=== PATIENT | female | born 1945 | race Caucasian/White ===

== ENCOUNTER 2018-05-08 14:00 | Outpatient (RCR) | payer MEDICARE, SELFPAY ==
--- NOTE | 2018-04-24 15:00 | PTTR_ITS ---
DATE: 04/24/18 SUBJECTIVE: Dot states that her met with her alkylation operator who modified her brace. She has only had it for 1 day, she isn't sure how she feels about it as of yet. Manual therapy: ([id number]). Today's session consisted of mobilization of cervical spine, began in supine position with gentle manual cervical traction, gentle PROM through all planes. She received mobilization with movement into L rotation with UPA's throughout the cervical segments. She also received bilateral PA mobilizations at grade 2 and 3 at C7-T1. Received suboccipital release and deep tissue mobilization throughout the cervical musculature as well as manual over pressure into cervical retraction. Direct treatment time: 30 mins Total treatment time: 30 mins after which the patient received an additional 15 mins of unattended moist heat to the cervical spine. SS/dl
--- NOTE | 2018-05-08 09:53 | PTTR_ITS ---
DATE: 04/07/18 SUBJECTIVE: Dot states that her neck is feeling incredibly stiff and try to use her brace here and there and she has difficulty getting this on. OBJECTIVE: Manual therapy: ([id number]). Pt received manual mobilization of the cervical spine. She received manual cervical traction and suboccipital release followed by passive range through all planes. She has significant restriction into (L) rotation at 40* today with firm end feel. She received mobilization with movement and grade 3UPAs to the (R) transverse processes. She also received deep tissue mobilization throughout the cervical paraspinals, upper traps and levator scap followed by further sustained stretching into rotation. She eventually tolerates 50* of (L) rotation. She ended with moist heat to the cervical spine for 15 minutes. Direct treatment time: 30 minutes Total treatment time: 45 minutes
== END 2018-05-09 23:59 | disposition home or self-care (01) ==
LOC: PT 14:00
PROVIDERS: PCP Family Medicine; Referring Provider Orthopaedic Surgery; Visit Provider Orthopaedic Surgery
DX: M54.2 Cervicalgia (principal); R51 Headache
CPT/HCPCS: 97140

== ENCOUNTER 2018-05-21 11:32 | Outpatient (CLI) | payer MEDICARE, SELFPAY | END 2018-05-21 11:52 | PROVIDERS: PCP Family Medicine; Visit Provider Surgery | DX: K58.0 Irritable bowel syndrome with diarrhea (principal) | CPT/HCPCS: 99213 ==

== ENCOUNTER 2018-09-03 10:38 | Emergency (ER) | payer MEDICARE, SELFPAY ==
[2018-09-03 11:00] VITALS: BP 160/89; PULSE 71; RESP 16; TEMP 37; O2SAT 99
--- NOTE | 2018-09-03 11:14 | W.ED.GENAD ---
Discharge Plan Disposition Patient Disposition: HOME Condition: Improving Discharge Details Chief Complaint: GenMedical Clinical Impression: Encounter for Daniels catheter removal Primary Care Provider: Lucas Chamorro ED Provider: Usman Melo Home Meds and New Rx's Prescriptions: Continued cyanocobalamin (vitamin B-12) [Vitamin B-12] 500 MCG tablet 500 mcg PO DAILY RF: 0 rhqythhxzgg-gxuljwpro-vgj C-Mn 1 EACH tablet 1,000 mg PO DAILY RF: 0 CENTRUM SILVER TABLET 1 EACH tablet 1 ea PO DAILY RF: 0 latanoprost 2.5 ML drops 1 drp OD HS RF: 0 diphenoxylate-atropine 1 EACH tablet 1 - 2 tab PO TID PRNQty: 30 RF: 4 benzonatate 200 MG capsule 200 mg PO TID PRNQty: 20 RF: 0 bismuth subsalicylate [Pepto-Bismol] 262 MG/15 ML suspension 1 tsp PO PRN PRNRF: 0 ranitidine HCl 300 MG tablet 300 mg PO HS Qty: 30 RF: 0 Discharge Instructions Additional Instructions: Continue all of your regular medications as well as her daily routine. Return if you are unable to urinate. Return if you develop a fever or back pain. Follow-up with surgery as planned with them at [facility]. Medical Decision Making 72-year-old female who was discharged from [facility] after complicated abdominal surgeries including incisional hernia. She was discharged on Saturday and states that she is here today for Daniels catheter removal after talking to [facility] and stated to them that she did not want to travel to [place] to have her catheter removed. She had no back pain or fever. She is been tolerating liquids and solids by mouth. Moving her bowels. Has decreased the use of ibuprofen for incisional and abdominal pain. Daniels catheter removed and patient observed for voiding trial with production of clear urine and no dysuria. Discussed with patient return precautions with patient and her including signs of urinary retention. Stable for discharge at this time. HPI General Mode of arrival: ambulatory. Date/Time Provider Initiated Documentation: 09/03/18 10:49. Limitations to Documentation: no limitations. Information obtained by: patient. History of Present Illness 72 year old F presents to the emergency department with the chief complaint of I do not want to drive to [facility] I have my catheter taken out. No pain, No relieving factors improve symptom(s), No exacerbating factors reported . Patient notes no other symptoms.. Patient did receive the following treatments prior to arrival, none Related Data Home Medications Medication Instructions Recorded Confirmed cyanocobalamin (vitamin B-12) 500 mcg PO DAILY 05/09/13 07/22/18 [Vitamin B-12] Centrum Silver Tablet 1 ea PO DAILY 01/08/14 07/22/18 otmhatmvkaq-zwxmjjzfn-pcu C-Mn 1,000 mg PO DAILY 01/08/14 07/22/18 latanoprost 1 drp OD HS drp 10/21/17 07/22/18 diphenoxylate-atropine 1 - 2 tab PO TID PRN #30 tab-cap 12/31/17 07/22/18 benzonatate 200 mg PO TID PRN #20 tab-cap 03/20/18 07/22/18 bismuth subsalicylate 1 tsp PO PRN PRN 05/01/18 07/22/18 [Pepto-Bismol] ranitidine HCl 300 mg PO HS #30 tab 05/01/18 07/22/18 Previous Rx's Medication Instructions Recorded ranitidine HCl 300 mg PO HS #30 tab 05/01/18 Allergies Allergy/AdvReac Type Severity Reaction Status Date / Time codeine AdvReac Severe GI UPSET Unverified 07/22/18 10:28 metoclopramide HCl AdvReac Severe GI UPSET Unverified 07/22/18 10:28 [From Reglan] tramadol AdvReac Severe GI UPSET Unverified 07/22/18 10:28 General Stated Complaint: GenMedical KOKO: 4 Review of Systems Review of Systems No fever, chills, nausea, vomiting. She has had normal bowel movements. 6 systems reviewed and otherwise negative [facility] Medical History Hx of Clostridium difficile infection (Resolved) Diarrhea Essential hypertension GERD (gastroesophageal reflux disease) Surgical History Abdominal hysterectomy (~1977) Appendectomy (~1957) Bladder Surgery (~1998) Breast tumor removal Colonoscopy - MAC (01/13/18) EGD - MAC (05/01/18) EYE SURGERY HERNIA REPAIR (~1973) Ligation of fallopian tube Open Carpal Tunnel release Pre cancer spots removed from face Reduction mammoplasty (~1995) Replacement of total knee joint Thymomma Tumor removal Tonsillectomy and adenoidectomy (~1948) Total replacement of hip Family History Mother RA (rheumatoid arthritis) Diabetes Heart disease Father Heart disease Neoplasm Sister Hyperlipidemia Neoplasm Daughter No problems noted. Daughter Essential hypertension Asthma Social History Smoking/Tobacco Use Status: Former Tobacco Use Exam Narrative Exam Narrative: GEN: awake, alert, oriented 3. Pleasant, well groomed, interactive. HEAD: Normocephalic, atraumatic ENT: Mucous membranes moist, oropharynx unremarkable, External ear exam unremarkable EYES: PERRL, EOMI NECK: Full ROM, no STARLA, no menigismus CHEST/RESP: Nontender, clear to auscultation bilateral, no wheeze/rhonchi/rales CARDIOVASCULAR: RRR, subtle 2 out of 6 systolic murmur, rub marla. 2+ Rad pulse bilateral ABDOMEN: Soft, nontender, no mass. Bilateral lower quadrant ecchymosis and healing surgical incisions. No rebound or guarding. +Bowel sounds. Daniels catheter with leg bag in place EXT: Full ROM, no edema, no rash Neuro: Grossly normal neurologic exam, conversant, interactive. Psych: Speech fluent, thoughts congruent, affect normal Course Vital Signs Temperature 37.0 C 09/03/18 11:00 Pulse 71 09/03/18 11:00 Respiratory Rate 16 09/03/18 11:00 Blood Pressure 160/89 H 09/03/18 11:00 Pulse Oximetry 99 09/03/18 11:00 Temperature 37.0 C 09/03/18 11:00 Temperature Source Temporal Artery Scan 09/03/18 11:00 Pulse 71 09/03/18 11:00 Respiratory Rate 16 09/03/18 11:00 Blood Pressure 160/89 H 09/03/18 11:00 Blood Pressure Position Sitting 09/03/18 11:00 Pulse Oximetry 99 09/03/18 11:00 Oxygen Delivery Method Room Air 09/03/18 11:00 Oxygen Flow Rate 0 09/03/18 11:00
--- NOTE | 2018-09-03 11:22 | NUR.NOTE ---
sigifredo church/cayla as ordered, pt. drinking water.
--- NOTE | 2018-09-03 12:46 | NUR.NOTE ---
Pt. voided about 80ccs, bladder scanned for 345ccs. MD Melo is at the bedside currently, discussing discharge plan. Pt. states she normally pees frequent small amounts. She denies any pain or discomfort.
== END 2018-09-03 13:28 | disposition home or self-care (01) ==
PROVIDERS: Emergency Provider Emergency Medicine; PCP Family Medicine
DX: Z46.6 Encounter for fitting and adjustment of urinary device (principal); Z98.890 Other specified postprocedural states
CPT/HCPCS: 99281

== ENCOUNTER 2018-10-14 16:25 | Outpatient (CLI) | payer MEDICARE, SELFPAY ==
--- NOTE | 2018-10-14 15:00 | DI.RAD_ITS ---
SYMPTOMS/DIAGNOSIS: PERSISTENT PAIN LT SHOULDER NOT HELPED WITH INJ, BURSITIS OF LT SHOULDER, M75.52 LEFT SHOULDER: There is mild spurring at the AC joint and undersurface of the acromion. There is mild spurring at the rim of the glenoid. The humeral head appears normally positioned. No tendon or joint space calcifications are seen. No lytic or blastic bony lesions are identified. There is mild spurring and small subchondral cysts in the greater tuberosity. Sternal wires are noted. IMPRESSION: Mild degenerative changes.
[2018-10-15 11:52] LABS: IgA 162 mg/dL (85-499); Interpretation SEE COMMENTS; Tissue Transglutaminase IgA <1.2 U/mL (<4.0)
== END 2018-10-14 16:45 ==
PROVIDERS: PCP Family Medicine; Visit Provider Family Medicine
DX: M25.512 Pain in left shoulder (principal); M19.012 Primary osteoarthritis, left shoulder; M75.52 Bursitis of left shoulder; R19.7 Diarrhea, unspecified
CPT/HCPCS: 36415; 82784; 83516; 73030

== ENCOUNTER 2019-03-02 02:27 | Outpatient (CLI) | payer MEDICARE, SELFPAY ==
[2019-03-02 16:13] LABS: HCT 36.6 % (36.0-46.0); HGB 12.3 g/dL (12.0-15.5); Mean Corp. HGB Concentration 33.6 g/dL (32.0-36.0); Mean Corpuscular Hemoglobin 30.3 pg (27.0-33.0); Mean Corpuscular Volume 90.1 fL (80-95); Mean Platelet Volume 9.3 fL (8.0-11.0); Platelet Count 189 x1000/uL (130-400); RBC 4.06 m/cumm (4.00-5.20); RBC Distribution Width 13.3 % (11.7-14.6); White Blood Cell Count 5.84 k/cumm (4.4-10.8)
[2019-03-02 16:48] LABS: Anion Gap 6.3 mmol/L (3-11); BUN 13 mg/dL (7-18); CO2 29.7 mmol/L (21.0-32.0); CREATININE 0.56 mg/dL (0.55-1.02); Chloride 105 mmol/L (98-107); Glucose 129 mg/dL (70-100); Potassium 4.3 mmol/L (3.5-5.1); Sodium 141 mmol/L (136-145)
== END 2019-03-02 02:47 ==
PROVIDERS: PCP Family Medicine; Visit Provider Family Medicine
DX: D64.9 Anemia, unspecified (principal); I10 Essential (primary) hypertension
CPT/HCPCS: 36415; 80048; 85027

== ENCOUNTER 2019-03-09 07:12 | Outpatient (CLI) | payer MEDICARE, SELFPAY ==
--- NOTE | 2019-03-09 17:30 | DI.MAMMO_ITS ---
SYMPTOM/DIAGNOSIS: SCREENING Z12.31 BILATERAL SCREENING MAMMOGRAM: Mammograms were interpreted according to the usual protocol including computer analysis with CAD system, tomosynthesis and C view imaging. Comparison is made with exams from 2011 through 2016. The breasts are composed of heterogeneously dense fibroglandular tissue, breast density Category C. There has been apparent interval weight loss since the previous exams. No suspicious masses or suspicious microcalcifications are seen. There has been no significant change. IMPRESSION: Category 1, negative mammogram. Yearly screening mammography is recommended. Breast density category C. MQSA ASSESSMENT OF FINDINGS: Negative. Category 1. Patient will receive a letter notifying them of these results. Bi-RADS category C. The breasts are heterogeneously dense, which may obscure small masses.
== END 2019-03-09 07:32 ==
PROVIDERS: PCP Family Medicine; Visit Provider Family Medicine
DX: Z12.31 Encounter for screening mammogram for malignant neoplasm of breast (principal)
CPT/HCPCS: 77063; 77067

== ENCOUNTER 2019-10-12 09:40 | Outpatient (CLI) | payer MEDICARE, SELFPAY ==
[2019-10-12 11:40] LABS: HCT 38.3 % (36.0-46.0); HGB 12.5 g/dL (12.0-15.5); Mean Corp. HGB Concentration 32.6 g/dL (32.0-36.0); Mean Corpuscular Hemoglobin 29.9 pg (27.0-33.0); Mean Corpuscular Volume 91.6 fL (80-95); Mean Platelet Volume 8.9 fL (8.0-11.0); Platelet Count 246 x1000/uL (130-400); RBC 4.18 m/cumm (4.00-5.20); RBC Distribution Width 13.8 % (11.7-14.6); White Blood Cell Count 6.33 k/cumm (4.4-10.8)
[2019-10-12 12:45] LABS: ALT 26 U/L (14-59); AST 18 U/L (15-37); Albumin 3.6 g/dL (3.4-5.0); Alkaline Phosphatase 78 U/L (46-116); BUN 14 mg/dL (7-18); Bilirubin, Total 0.4 mg/dL (0.2-1.0); CREATININE 0.66 mg/dL (0.55-1.02); Calcium 10.6 mg/dL (8.5-10.1); Chloride 105 mmol/L (98-107); Glucose 95 mg/dL (74-106); Potassium 4.5 mmol/L (3.5-5.1); Sodium 142 mmol/L (136-145); Total Protein 6.1 g/dL (6.4-8.2)
== END 2019-10-12 10:00 ==
PROVIDERS: PCP Family Medicine; Visit Provider Family Medicine
DX: I10 Essential (primary) hypertension (principal); R53.83 Other fatigue
CPT/HCPCS: 36415; 80053; 85027

== ENCOUNTER 2020-03-28 02:29 | Outpatient (CLI) | payer MEDICARE, SELFPAY ==
[2020-03-28 13:37] LABS: ESR 11 mm/hr (0-30)
[2020-03-28 13:54] LABS: C-Reactive Protein 0.11 mg/dL (0.0-0.3); Creatine Kinase 57 U/L (26-192)
== END 2020-03-28 02:49 ==
PROVIDERS: PCP Family Medicine; Visit Provider Family Medicine
DX: G71.00 Muscular dystrophy, unspecified (principal); M25.50 Pain in unspecified joint
CPT/HCPCS: 36415; 82550; 85652; 86140

== ENCOUNTER 2020-04-20 09:34 | Outpatient (CLI) | payer MEDICARE, SELFPAY ==
--- NOTE | 2020-04-20 09:15 | DI.RAD_ITS ---
EXAM: XR SHOULDER RT COMPLETE 2+V CLINICAL HISTORY: right shoulder pain TECHNIQUE: COMPARISON: CR XR SHOULDER LT COMPLETE 2+V from 04/20/2020 FINDINGS: Two views were obtained. There may be slight narrowing of cartilaginous joint space of the glenohume ral joint. Moderate marginal osteophytes noted involving the humeral head and glenoid and moderate h ypertrophic changes of the AC joint are noted. No other significant bony or soft tissue abnormality seen. IMPRESSION: Moderate degenerative changes of glenohumeral and AC joints as described above.
--- NOTE | 2020-04-20 09:15 | DI.RAD_ITS ---
EXAM: XR SHOULDER LT COMPLETE 2+V CLINICAL HISTORY: left shoulder pain TECHNIQUE: COMPARISON: No exams were available for comparison FINDINGS: Views were obtained. Note is made of sternal sutures. There may be slight narrowing of the cartilag inous joint space of the glenohumeral joint. Moderate marginal osteophytes noted at the glenohumeral joint and AC joint. No other significant bony or soft tissue abnormality seen. IMPRESSION: Moderate degenerative changes as described above.
== END 2020-04-20 09:54 ==
PROVIDERS: PCP Family Medicine; Referring Provider Family Medicine; Visit Provider Student in an Organized Health Care Education/Training Program
DX: M19.012 Primary osteoarthritis, left shoulder (principal); M19.011 Primary osteoarthritis, right shoulder; M75.21 Bicipital tendinitis, right shoulder; M75.22 Bicipital tendinitis, left shoulder; M75.102 Unspecified rotator cuff tear or rupture of left shoulder, not specified as traumatic; M75.51 Bursitis of right shoulder; M75.52 Bursitis of left shoulder; M75.41 Impingement syndrome of right shoulder; M75.42 Impingement syndrome of left shoulder
CPT/HCPCS: 99204; 99215; 73030

== ENCOUNTER → 2020-06-15 11:05 | Outpatient (BNVA) | payer MEDICARE, SELFPAY | PROVIDERS: PCP Family Medicine; Referring Provider Family Medicine; Visit Provider Student in an Organized Health Care Education/Training Program | DX: M25.512 Pain in left shoulder (principal); M25.511 Pain in right shoulder; M75.41 Impingement syndrome of right shoulder; M75.42 Impingement syndrome of left shoulder; M75.51 Bursitis of right shoulder; M75.52 Bursitis of left shoulder; M75.21 Bicipital tendinitis, right shoulder; M75.22 Bicipital tendinitis, left shoulder; M75.122 Complete rotator cuff tear or rupture of left shoulder, not specified as traumatic | CPT/HCPCS: 99214 ==

== ENCOUNTER → 2020-10-11 09:01 | Outpatient (BNVA) | payer MEDICARE, SELFPAY | PROVIDERS: PCP Family Medicine; Referring Provider Family Medicine; Visit Provider Student in an Organized Health Care Education/Training Program | DX: M75.122 Complete rotator cuff tear or rupture of left shoulder, not specified as traumatic (principal); M75.41 Impingement syndrome of right shoulder; M75.42 Impingement syndrome of left shoulder; M75.51 Bursitis of right shoulder; M75.52 Bursitis of left shoulder | CPT/HCPCS: 99213 ==

== ENCOUNTER 2020-10-26 01:08 | Outpatient (CLI) | payer MEDICARE, SELFPAY ==
--- NOTE | 2020-10-26 06:45 | DI.MRI_ITS ---
EXAM: MR UPPER JOINT LT WO CLINICAL HISTORY: LT ROTATOR CUFF TEAR, LT SHOULDER PAIN, M75.122 TECHNIQUE: Multiplanar multisequence MRI of the shoulder was performed. COMPARISON: CR XR SHOULDER LT COMPLETE 2+V from 04/20/2020 CR XR SHOULDER RT COMPLETE 2+V from 04/20/2020 FINDINGS: MARROW:There is bone contusion signal in the greater tuberosity. Also degenerative subarticular cyst at this level noted ROTATOR CUFF MECHANISM: AC JOINT/ACROMIUM: Degenerative changes in the AC joint. Prominent downgoing osteophyte on the clavi cular side of this joint is causing impingement upon the rotator cuff mechanism.. There is no evidence of os acromiale. Supraspinatus: Tendinitis signal. No full-thickness tear. Mild atrophy. There is no fluid in the subacromial bursa Infraspinatus: Intact. No evidence of tear nor muscle atrophy. Teres Minor: Intact. No evidence of tear nor muscle atrophy. Subscapularis/anterior cuff: Mild tendinitis. No full-thickness tear. No atrophy. BICEPS TENDON: The intra-articular aspect of the biceps tendon is not evident, unusual location consi stent with tear of this structure. It does not appear to attach to the anterosuperior labrum. LABRUM: There is no abnormal signal in the superior labrum. Posterior labrum appears intact. Inferi or labrum appears intact. GLENOHUMERAL JOINT: No joint effusion nor obvious loose intra-articular bodies. No chondral defects. No prominent osteophytes. No evidence of capsular tear. The inferior glenohumeral ligament is int act. QUADRILATERAL SPACE: No evidence of mass in the region of the axillary nerve and dorsal circumflex hu meral vessels. Visualized triceps muscle at this level appears unremarkable. IMPRESSION: 1. The biceps tendon is thin within the intertubercular groove and the intra-articular portion of the structure does not appear to attached to the anterior superior labrum, consistent with tear of this structure. This does not have acute appearance. There is no obvious tear of the superior labrum. 2. Rotator cuff status supraspinatus tendonitis, this related to impingement at the AC joint level wh ere there is downgoing osteophyte on the clavicular side of the joint. There also degenerative subar ticular cysts and bone edema in the greater tuberosity region. There does not appear to be a full-th ickness rotator cuff tear. There is no fluid in the subacromial bursa. 3. Mild degenerative changes in the glenohumeral joint. No large osteophytes. No prominent glenohum eral joint effusion or loose intra-articular bodies evident. DATA REPOSITORY:
== END 2020-10-26 01:09 ==
LOC: DI 01:09
PROVIDERS: PCP Family Medicine; Visit Provider Student in an Organized Health Care Education/Training Program
DX: M75.122 Complete rotator cuff tear or rupture of left shoulder, not specified as traumatic (principal); M25.512 Pain in left shoulder; M19.012 Primary osteoarthritis, left shoulder; M75.82 Other shoulder lesions, left shoulder
CPT/HCPCS: 73221

== ENCOUNTER → 2020-11-09 15:03 | Outpatient (BNVA) | payer MEDICARE, SELFPAY | PROVIDERS: PCP Family Medicine; Referring Provider Family Medicine; Visit Provider Student in an Organized Health Care Education/Training Program | DX: M19.012 Primary osteoarthritis, left shoulder (principal); M75.51 Bursitis of right shoulder; M75.52 Bursitis of left shoulder; M75.41 Impingement syndrome of right shoulder; M75.42 Impingement syndrome of left shoulder | CPT/HCPCS: 99214 ==

== ENCOUNTER 2020-11-29 03:09 | Outpatient (CLI) | payer MEDICARE, SELFPAY ==
[2020-11-29 11:34] LABS: Source Nasal/Nares
[2020-11-29 16:59] LABS: COVID-19 PCR Negative (Negative)
== END 2020-11-29 03:10 | disposition home or self-care (01) ==
LOC: LBO 03:09
PROVIDERS: PCP Family Medicine; Visit Provider Student in an Organized Health Care Education/Training Program
DX: Z20.822 Contact with and (suspected) exposure to COVID-19 (principal); Z01.818 Encounter for other preprocedural examination
CPT/HCPCS: 87635

== ENCOUNTER 2020-12-01 06:11 | Day surgery (SDC) | payer MEDICARE, SELFPAY ==
--- NOTE | 2020-11-10 14:52 | ANES_ITS ---
Date of service: 11/10/20 Time of Service: 14:53 Anesthesia Note Report Anesthesia Note: Anesthesia consult for chart review requested by Dr. Natalia Harris due to upcoming shoulder arthroscopy and debridement of left shoulder and the patient's history significant to kyphosis and unspecified muscular dystrophy. The patient has a very significant anesthetic history at [facility] with both emergent and planned anesthetics. We have taken care of her before though for less invasive procedures. Due to her history of muscular dystrophy recommendations to incorporate regional anesthetics, incorporate TIVA, and avoid depolarizing neuromuscular agents. High risk of pulmonary complications postoperatively, especially with her kyphosis. We can proceed cautiously with her planned surgery.
[2020-12-01] VITALS (17 sets, daily range): BP systolic 144–222; BP diastolic 69–104; PULSE 66–90; RESP 12–20; TEMP 36–36.8; O2SAT 95–100
[2020-12-01] MEDS: Lactated Ringers 1,000 ML 100 ML IV (06:47)
--- NOTE | 2020-12-01 08:22 | W.PM.OP ---
Date of service: 12/01/20 Time of Service: 08:00 Operative Note Operative Note DATE OF PROCEDURE: 12/01/20 PRE-OP DIAGNOSIS: Left shoulder: 1. Rotator cuff tear 2. LHB tendinopathy 3. Bursitis 4. Impingement PROCEDURE: None SURGEON: Blade Harris APPOINTMENT SCHEDULER: Mike Pérez ANESTHESIA TYPE: General LMA/ETT and Primary Nerve Block Refer to Anesthesia Record ESTIMATED BLOOD LOSS: 0 PATHOLOGY: none sent COMPLICATIONS: Other (Case aborted after induction of anesthesia due to labile blood pressure) Patient was transported to: PACU Patient's condition: stable Indications: The patient was diagnosed with the above conditions and appropriately indicated for surgical intervention. Please see complete medical record for details. Findings: Exam under anesthesia: Moderately restricted range of motion, after gentle pressure external rotation forward elevation relative symmetric bilaterally with forward elevation about 135 to 145 degrees with modest pressure, external rotation past 55 degrees, and internal rotation past her hips Procedure Description: In the operating room, general anesthesia was induced. Bilateral shoulders were examined. The patient blood pressures were labile and her heart rate was bradycardic. On attempts to sit the patient up into the beachchair position, which was done slowly, the blood pressures especially systolic was elevated over 200. The patient was laid flat and reevaluated for period of time. Blood pressures remained labile alternating between normotensive and significantly hypertensive while the patient appeared comfortably under general anesthesia with a bradycardic heart rate. Recommendation from both nurse warehouse distribution manager in the room was to abort elective shoulder surgery today and the patient to follow-up with her primary care physician for evaluation/optimization of blood pressure control. I discussed our inability to safely perform the patient's shoulder surgery today with her who voices understanding and is in agreement with the plan. I will follow up with both him in my office discuss the options including nonoperative treatment with additional corticosteroid injection versus referral to [facility] for higher level of anesthesia care. Patient will be monitored for any adverse event, and anesthesia and in the PACU in day surgery units prior to discharge.
[2020-12-01] MEDS: ceFAZolin 2 GM/50 ML BAG IVPB (08:31)
--- NOTE | 2020-12-01 10:02 | MCONE_ITS ---
Date of service: 12/01/20 Time of Service: 09:40 Assessment and Plan Assessment and plan (1) Hypertensive urgency: Status: Acute Assessment and plan: The patient likely in fact has a higher degree of hy pertension than she thinks because her BP measurements at home have been inaccurate due to technique/arm position/inherently inaccurate home BP cuffs. At the same time, she admits to a high salt intake. We will start the patient on norvasc 2.5 mg PO daily and have a home health nurse assess her BP at home - this way, white coat hypertension, stress of pushing a wheelchair, and poor technique will be taken out of equation. We will also catch if her BP is being over or undertreated. I anticipate she has a component of autonomic dysfunction likely associated with her spending much of her time seated/requiring a wheel chair, though I recognize she is also ambulatory. I think a cardiac myopathy is much less likely given the fact that her spinal myopathy is isolated, per neuro, but I think it is worth it to obtain an outpatient echocardiogram to make sure. I will order this. Orthostatic BPs should be checked at the time of the patient's home health visit as well. I suspect the patient can be discharged home from PACU. Discuss with Malu Kaufman as well as with Dr Harris. (2) Urinary retention: Status: Acute Assessment and plan: I have ordered bladder scans with straight cath for bladder volume >250 cc. 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 The patient had blood pressures in 160s systolic in preop area. It was noted that she was anxious. Her blood pressures did go up to >200 systolic when she was about to get scalene block. With precedex and induction of anesthesia, as well as intubation, the SBPs came down to 115-120. The patient was then sat up as would be expected for procedure with SBPs dropping to 90s and HR down to 20-30s (sinus bradycardia). BP and HR changes are expected with position change under anesthesia. Phenylephrine and ephedrine boluses were administered with SBPs going up to 120, HR up to 50s. However, then the patient's BPs went up to >200 supine. At that point, decision was made to abort surgery. The patient ended up receiving a total of 10 mg of hydralazine. She was successfully extubated and is able to tell me her history. She states that for years she has had a diagnosis of hypertension. She states the BPs got better when she lost weight (she used to weigh 180 lbs, per patient). She states that still, when she goes to see her PCP in the office, her SBPs are frequently in 160s but when she checks them at home with a digital cuff, they are in 130s. She states she has never been medicated for her BP. When asked if she makes sure that the arm position is at the heart level when she checks her BP, she states she usually does not do that. She also endorses significant salt intake at home (Divehi fries, potato chips, etc). The patient states she feels a little dizzy now (just coming out of anesthesia). She denies having chest pain or shortness of breath. The patient is also endorsing having difficulty emptying her bladder post anesthesia and was about to have a bladder scan. 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 Diarrhea negative colonosocpy for microscopic colitis Diarrhea Essential hypertension GERD (gastroesophageal reflux disease) Sebastian's disease Hx of Clostridium difficile infection Kyphosis Muscular dystrophy Neck pain large breasts; S/P reduction x 2 Peripheral neuropathy RLS (restless legs syndrome) Sinus arrhythmia (11/24/13) noted on EKG at [facility] [place] 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 Marinelli Reduction mammoplasty (~1995) Replacement of total knee joint [facility] [place] [facility] (right) Thymomma Tumor removal 1996 Tonsillectomy and adenoidectomy (~1949) Total replacement of hip [facility] [place] [facility] 11/01/17 Family History Mother , 63 RA (rheumatoid arthritis) Diabetes Heart disease ENLARGED HEART Father , 91 Heart disease PACEMAKER Skin cancer of nose Sister Hyperlipidemia Cancer of skin of leg Daughter No problems noted. Daughter Essential hypertension Asthma Maternal Grandfather No problems noted. Paternal Grandfather No problems noted. Maternal Grandmother No problems noted. Paternal Grandmother No problems noted. Social History Smoking/Tobacco Use Status: Former Tobacco Use Quit Date: 09/09/1968 Tobacco: How many years used: 3 Second Hand Exposure: Yes Smoking risk assessment performed?: Yes Alcohol Intake: former Drug use: Never Substance use type: does not use Caregiver/Support person: Yes ( when needed) Household members: spouse Housing: house Communication Needs: Hard of Hearing Do you need help understanding health information?: Never Pets and animals: No Sexually active: Yes Do you think of yourself as: straight/heterosexual Current gender identity: female What is your relationship status?: How often do you talk on the phone with friends or family?: three or more times per week How often do you get together with friends or relatives?: once per week How often do you attend uatsdin or buddhist services?: 4 or more times per year Do you belong to any clubs or organized social groups?: no Panel score (0-1 are the most socially isolated patients): 3 What type of physical activity do you participate in: other Details: balance exercises, stretching, weights 3 x/week Duration: < 15 minutes/day Frequency: decline to answer Cindy/Restoration: [facility] Special cindy needs: No Seatbelt use: always Helmet use: Yes Helmet use: sometimes Drive intox or ride w/intox four horse hitch driver: No Do you feel safe at home: Yes Do you feel safe in your relationship?: Yes Exam Narrative Exam Narrative: General: Very pleasant elderly female, A&Ox3, awake enough to provide a coherent history Neurological: A&Ox3, no focal deficits that I am able to appreciate Psychiatric: Appropriate speech content/pattern Skin: Visible skin intact HEENT: Atraumatic, normocephalic, EOMI, dry MM, no JVD Cardiovascular: RRR, no m/r/g Lungs: CTAB Gastrointestinal: soft, nontender, nondistended Extremities: no edema BLEs Results Last Vital Signs Temp 36.0 C L 12/01/20 09:31 Pulse 85 12/01/20 09:31 Resp 16 12/01/20 09:31 BP 172/74 H 12/01/20 09:31 Pulse Ox 100 12/01/20 09:01
[2020-12-01] MEDS: amLODIPine 2.5 MG TAB PO (10:15)
--- NOTE | 2020-12-01 10:52 | PDOC.HHF2F_ITS ---
Home Health Certification Home Health Certification: 1. Encounter Date and Reason I certify that CLEOPATRA ANDRADE was seen by Raine Scott on 12/01/20 and that I had a [id number] encounter with this patient that meets the physician face to face encounter requirements. 2. Clinical Findings Supporting Skilled Need and Homebound Status I certify that home health services are medically necessary, include either intermittent correction and/or physical/speech therapy, and that this patie nt is homebound in that absences from the home require considerable and taxing effort and are infrequent or of short duration, or are attributable to the need to receive medical care. [X] (a) Attached documentation from encounter provides clinical findings supporting skilled need and homebound status (including what assistance patient requires to leave the home). The encounter with the patient was in whole, or in part, for the following medical condition, which is the primary reason for home health care: Left shoulder surgery Fci: Hypertension, being initiated on new BP med (amlodipine 2.5 mg daily), question of autonomic dysfunction. Please, evaluate BP (regular and orthostatic). Homebound: unable to leave home without assistance. 3. Certification and Authentication I certify that I composed the above information based on my clinical judgement relating to this patient's medical condition and, if applicable, clinical findings communicated to me by the NPP or inpatient physician who performed the Home Health Referral. All further orders will be obtained through ___Dr Jerry (Community Based Physician - PCP)
[2020-12-01] MEDS: Metoprolol 12.5 MG TAB PO (11:52)
--- NOTE | 2020-12-01 13:34 | PDOC.DSDIS_ITS ---
Discharge Plan Disposition Patient Disposition: HOME Condition: Stable Discharge Details Reason For Visit: Left shoulder surgery Attending Provider: Blade Harris Primary Care Provider: Blane Jerry Home Meds and New Rx's Prescriptions: Continued omega 5-jes-jor-fish oil [Fish Oil] 60-90-500 mg capsule 1 cap PO DAILY RF: 0 Saccharomyces boulardii 250 mg capsule 250 mg PO BID Qty: 60 RF: 5 cyanocobalamin (vitamin B-12) [Vitamin B-12] 500 MCG tablet 500 mcg PO DAILY RF: 0 CENTRUM SILVER TABLET 1 EACH tablet 1 ea PO DAILY RF: 0 latanoprost 2.5 ML drops 1 drp OD HS RF: 0 diphenoxylate-atropine 2.5-0.025 mg tablet 1 - 2 tab PO TID PRN (Reason: diarrhea) Qty: 60 RF: 2 bismuth subsalicylate [Pepto-Bismol] 262 MG/15 ML suspension 1 tsp PO PRN PRNRF: 0 Discontinued amoxicillin 500 mg tablet 2,000 mg PO ONCE Qty: 16 RF: 0 Discharge Instructions Additional Instructions: Left shoulder surgery canceled by nurse tool designer team due to labile blood pressure Recommend follow-up with primary care physician to discuss blood pressure optimization for possible future surgery here at [facility] or referral to [facility] for orthopedic surgery Follow-up: 10-[address] Harris to reevaluate both shoulders You may take off the leg compression stockings this evening at home. You may also leave them on a few days longer if you have a history of leg swelling or edema. Let us know right away if you develop any redness, drainage, fevers, chest pain, or trouble breathing. Do not drink alcohol or drive for at least 24 hours after anesthesia. Please call the office during business hours with any questions or concerns. Referrals: Blade Harris MD [ [facility] STAFF PHYSICIAN] - Discharge Orders Discharge Orders: Discharge Order (Routine); Ordered 12/01/20 Ordered By: Blade Harris DS: Diagnosis Discharge Diagnosis (1) Bursitis of left shoulder: Status: Chronic (2) Arthritis of left acromioclavicular joint: Status: Acute (3) Left rotator cuff tear: Status: Acute (4) Impingement syndrome of both shoulders: Status: Acute
--- NOTE | 2020-12-01 14:31 | IN_ITS ---
Date of service: 12/01/20 Time of Service: 14:31 PT Notes Visit Reasons: Left shoulder surgery Physical Therapy Day Surgery Initial Evaluation Date: 12/01/2020 Referring Doctor: Raine Scott MD PT Orders: PT CONSULT: Safety consult for DC Precautions: No motor control in left UEs due to interscalene nerve block. Activity as tolerated. Fall. Patient Profile/Admitting Diagnosis: Daysi is a 75-year-old female scheduled to have an elective shoulder surgery due to left rotator cuff pathology, long head of biceps tendinopathy, bursitis, and impingement syndrome with Dr. Harris. Surgery was aborted due to hypertensive urgency after administration of a left upper extremity single interscalene nerve block. Referral to surgery was made by Dr. Scott in order to ensure safety of mobility ADL performance using a different assistive device as patient is unable to use left upper upper extremity at this time. 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 Marinelli Reduction mammoplasty (~1995) Replacement of total knee joint [facility] (right) Thymomma Tumor removal 1996 Tonsillectomy and adenoidectomy (~1948) Total replacement of hip [facility] 11/01/17 Social History/Home Situation: has been very supportive of all her needs. Lives in a private home with with no steps to enter. Independent with use of front wheeled walker at baseline. Equipment Owned/DME: FWW, [facility] Subjective: Denies headache and chest pain, reports mild dizziness. Agreeable to getting out of bed to see how she does with transferring using the single-point cane. Objective: General Observation: Supine in bed. Left upper extremity in sling. Mental Status: Alert and oriented x4 Pain: None reported ROM: Left Upper Extremity: No active range of motion due to nerve block effects Strength: Left Upper Extremity: 0/5 Sensation: None in L UE Bed Mobility/Transfers: Supine to sit minimal assist Sit to stand minimal assist Stand to sit minimal assist Bed to chair minimal assist Gait: Patient required minimal assist and minimal verbal cueing with safe strategies and using the single-point cane from bedside to transfer onto the wheelchair covering 10 steps total with no complaints of pain. She indicates that standing she is able to assume an erect posture but once she starts walking she assumes a bent position to prevent her from falling. Balance: Static Sitting: Good Dynamic Sitting: Fair Static Standing: Fair Dynamic Standing: Poor Special Tests: Mobility Limitations Standardized Measure [facility] 6 clicks Basic Mobility Inpatient Short Form: Raw Score: 1847% deficit CMS Score: Informed Consent/Education: Patient instructed in purpose of PT consult. Assessment: Daysi demonstrates functional mobility decline requiring the use of a single-point cane and minimal assist for all transfer task performance and short distance ambulation due to absent left upper extremity motor control related to left upper extremity single interscalene nerve block with aborted elective left shoulder surgery due to hypertensive urgency. Patient and nurse La was just trained and educated on safe strategies and performing transfer tasks and short distance ambulation using the single-point cane. Patient was also instructed about the need to support her left upper extremity with out of bed by using upper extremity sling for motor control returns. Patient indicates that her will provide all the needed support she needs and is physically healthy to provide said needs at home. Patient presents with clinical signs and symptoms consistent with current/admitting diagnoses that have resulted to mobility limitations, gait instability, generalized weakness, and impairment of motor control as demonstrated by the following impairment level findings: 1. No strength to left upper extremity major muscle groups due to interscalene block 2. Impaired standing balance 3. Limitation of joint range of motion in left upper extremity joints Impairments are contributing to the following functional limitations: 1. Inability to safely ambulate without assistive device and physical assistance 2. Increase completion time for mobility ADL performance 3. Increased fall risk Patient is assessed as a 45826 low complexity based on the following: History: 75-year-old female with impairment level findings, functional limitations, and past medical history as indicated above Examination: Demonstrable impairment in strength, balance, and mobility level with underlying impairments and functional limitations as documented above Presentation: Stable Decision Makin Goals: N/A. PT evaluation and 1-2 treatment sessions only for functional mobility training using recommended AD. Plan of Care/Treatment Plan: N/A. PT evaluation and 1-2 treatment session only for functional mobility training using recommended AD. DISCHARGE RECOMMENDATIONS: Home with supporting all mobility ADL performance using single-point cane. Instructed patient with putting on sling for left upper extremity when out of bed until complete motor control returns. TREATMENT CODE/TIME: 71616 x 19 minutes beginning at 14:31 PM. Thank you for the opportunity to participate in the care of this patient. Malaika Gordillo PT, DPT, CLT [facility] [place], [place]
--- NOTE | 2020-12-01 16:56 | CMPROGNOTE_ITS ---
- If Service Date Differs Date of service: 12/01/20 Time of Service: 11:30 Care Management Progress Note Daysi comes in for a scheduled left shoulder surgery today. The surgery, however, is cancelled due to labile blood pressure. At the request of Dr. Scott, consulting provider, coordinates a referral to [facility] ([facility] - tel. [phone]) for VNA RN services for the purpose of evaluating Daysi' blood pressures at home. receives a telephone call from [facility] who advises they are unable to provide in- home services as blood pressure checks are not a skilled need. This information is relayed to Dr. Scott, who recommends CM contact patient's PCP to make them aware [facility] will not be obtaining blood pressure readings. A message is left for [facility]'s chronic health care manager.
--- NOTE | 2020-12-01 16:56 | PDOC.CMPRO ---
- If Service Date Differs Date of service: 12/01/20 Time of Service: 11:30 Care Management Progress Note Daysi comes in for a scheduled left shoulder surgery today. The surgery, however, is cancelled due to labile blood pressure. At the request of Dr. Scott, consulting provider, coordinates a referral to [facility] ([facility] - tel. [phone]) for VNA RN services for the purpose of evaluating Daysi' blood pressures at home. receives a telephone call from [facility] who advises they are unable to provide in-home services as blood pressure checks are not a skilled need. This information is relayed to Dr. Scott, who recommends CM contact patient's PCP to make them aware [facility] will not be obtaining blood pressure readings. A message is left for [facility]'s chronic child care aide.
== END 2020-12-01 16:10 | disposition home or self-care (01) ==
PROVIDERS: PCP Family Medicine; Visit Provider Student in an Organized Health Care Education/Training Program
PROC: (CPT 29805; principal; 2020-12-01 07:30)
PROC: (CPT 23430; 2020-12-01 07:30)
DX: M75.52 Bursitis of left shoulder (principal); M19.012 Primary osteoarthritis, left shoulder; M75.122 Complete rotator cuff tear or rupture of left shoulder, not specified as traumatic; Z53.09 Procedure and treatment not carried out because of other contraindication; R09.89 Other specified symptoms and signs involving the circulatory and respiratory systems; Y66 Nonadministration of surgical and medical care; G89.18 Other acute postprocedural pain
CPT/HCPCS: 29827; 76942; 97161; 99254; 99213; 99222; J0360; J0690; J1100; J2001; J2370; J2405; J2704; J3490

== ENCOUNTER → 2020-12-14 10:44 | Outpatient (BNVA) | payer MEDICARE, SELFPAY | PROVIDERS: PCP Family Medicine; Referring Provider Family Medicine; Visit Provider Student in an Organized Health Care Education/Training Program | DX: M75.21 Bicipital tendinitis, right shoulder (principal); M75.22 Bicipital tendinitis, left shoulder; M75.51 Bursitis of right shoulder; M75.52 Bursitis of left shoulder; M75.41 Impingement syndrome of right shoulder; M75.42 Impingement syndrome of left shoulder; M19.012 Primary osteoarthritis, left shoulder; M75.122 Complete rotator cuff tear or rupture of left shoulder, not specified as traumatic | CPT/HCPCS: 99213 ==

== ENCOUNTER 2020-12-20 13:13 | Outpatient (CLI) | payer MEDICARE, SELFPAY ==
--- NOTE | 2020-12-20 13:00 | RT.EKG_ITS ---
APPROVED REPORT Exam: Resting ECG Patient Location: O HR:63 bpm ECG Measurements Heart Rate 63 AXIS PA 188 P 66 QRSd 99 QRS -63 QT 380 T 60 QTc 388 Conclusion Sinus rhythm...normal P axis, V-rate 60- 99 Left anterior fascicular block...axis(240,-40), init forces inf
== END 2020-12-20 13:14 | disposition home or self-care (01) ==
LOC: DI.CM 13:13
PROVIDERS: PCP Family Medicine; Visit Provider Nurse Practitioner Family
DX: R07.9 Chest pain, unspecified (principal)
CPT/HCPCS: 93010

== ENCOUNTER 2020-12-20 14:36 | Outpatient (CLI) | payer MEDICARE, SELFPAY ==
--- NOTE | 2020-12-20 13:30 | DI.RAD_ITS ---
EXAM: XR CHEST 2V PA LATERAL CLINICAL HISTORY: chest pain R07.9 TECHNIQUE: 2D digital imaging was performed. COMPARISON: CR CHEST 2 VIEWS PA,LAT from 03/22/2016 FINDINGS: MEDIASTINUM: Normal. HEART: Normal. PULMONARY VASCULATURE: Normal. LUNGS: Clear. PLEURAL SPACE: No pleural effusion or pneumothorax. BONE:Within normal limits for the patient's age. Prior sternotomy. OTHER FINDINGS:Normal. IMPRESSION: No acute pulmonary findings. DATA REPOSITORY: RADIATION DOSE DELIVERED:
== END 2020-12-20 14:56 ==
PROVIDERS: PCP Family Medicine; Visit Provider Nurse Practitioner Family
DX: R07.9 Chest pain, unspecified (principal)
CPT/HCPCS: 71046

== ENCOUNTER 2021-03-06 13:19 | Outpatient (CLI) | payer MEDICARE, SELFPAY ==
--- NOTE | 2021-03-06 11:45 | DI.RAD_ITS ---
Exam(s) XR SHOULDER RT COMPLETE 2+V EXAM: XR SHOULDER RT COMPLETE 2+V CLINICAL HISTORY: right shoulder pain m25.511. TECHNIQUE: 2D digital imaging was performed. COMPARISON: CR XR SHOULDER RT COMPLETE 2+V from 04/20/2020 FINDINGS: There is no evidence of fracture or dislocation or joint space narrowing. Some calcifications noted in medial subacromial space. Also degenerative changes in the AC joint with downgoing osteophytes. Subacromial space itself does not appear diminished. IMPRESSION: Probable rotator cuff tendinitis. AC joint degenerative changes probably resulting in an element of impingement. DATA REPOSITORY: RADIATION DOSE DELIVERED:
== END 2021-03-06 13:39 ==
PROVIDERS: PCP Nurse Practitioner Family; Visit Provider Nurse Practitioner Family
DX: M19.011 Primary osteoarthritis, right shoulder (principal)
CPT/HCPCS: 73030

== ENCOUNTER 2021-03-06 18:44 | Outpatient (REF) | payer MEDICARE, SELFPAY | END 2021-03-06 18:45 | disposition home or self-care (01) | LOC: LBN 18:44 | PROVIDERS: PCP Nurse Practitioner Family; Visit Provider Nurse Practitioner Family | DX: N39.0 Urinary tract infection, site not specified (principal) | CPT/HCPCS: 87077; 87086; 87186 ==

== ENCOUNTER 2021-03-27 03:06 | Outpatient (CLI) | payer MEDICARE, SELFPAY ==
[2021-03-27 12:55] LABS: ALT 22 U/L (14-59); AST 21 U/L (15-37); Albumin 3.6 g/dL (3.4-5.0); Alkaline Phosphatase 90 U/L (46-116); Anion Gap 3.7 mmol/L (3-11); BUN 16 mg/dL (7-18); Bilirubin, Total 0.5 mg/dL (0.2-1.0); CO2 32.3 mmol/L (21.0-32.0); CREATININE 0.6 mg/dL (0.55-1.02); Calcium 9.9 mg/dL (8.5-10.1); Calculated LDL 120 mg/dL (<100); Chloride 106 mmol/L (98-107); Cholesterol 228 mg/dL (<200); Glucose 98 mg/dL (74-106); HDL Cholesterol 96 mg/dL (40-60); Potassium 4.3 mmol/L (3.5-5.1); Sodium 142 mmol/L (136-145); Total Protein 6.1 g/dL (6.4-8.2); Triglyceride 64 mg/dL (<150)
== END 2021-03-27 03:07 | disposition home or self-care (01) ==
LOC: LOS 03:07
PROVIDERS: PCP Nurse Practitioner Family; Visit Provider Nurse Practitioner Family
DX: E78.5 Hyperlipidemia, unspecified (principal); I10 Essential (primary) hypertension
CPT/HCPCS: 36415; 80053; 80061

== ENCOUNTER 2021-03-27 20:57 | Outpatient (REF) | payer MEDICARE, SELFPAY | END 2021-03-27 20:58 | disposition home or self-care (01) | LOC: LBN 20:57 | PROVIDERS: PCP Nurse Practitioner Family; Visit Provider Nurse Practitioner Family | DX: N39.0 Urinary tract infection, site not specified (principal) | CPT/HCPCS: 87077; 87086; 87186 ==

== ENCOUNTER 2021-04-24 07:22 | Day surgery (SDC) | payer MEDICARE, SELFPAY ==
--- NOTE | 2021-04-24 06:37 | W.ANESPRE ---
General Info Date of Service Date Performed: 04/24/21 Height: 4 ft 11 in Weight: 52.617 kg Body Mass Index (BMI): 23.4 Surgical Procedure: Operation Date: 04/24/21 09:40 Proposed Procedures Side Surgeon p Cataract Extraction with IOL Implant Right Yves Camara MD Meds Allergies and Home Medications Allergies Allergy/AdvReac Type Severity Reaction Status Date / Time codeine AdvReac Severe GI UPSET Verified 04/24/21 07:43 metoclopramide HCl AdvReac Severe GI UPSET Verified 04/24/21 07:43 [From Reglan] tramadol AdvReac Severe GI UPSET Verified 04/24/21 07:43 Home Medication Medication Instructions Recorded Centrum Silver Tablet 1 ea PO DAILY 01/08/14 latanoprost 1 drp OD HS drp 10/21/17 bismuth subsalicylate 1 tsp PO PRN PRN 05/01/18 [Pepto-Bismol] omega 1-tui-sve-fish oil 60 mg-90 1 cap PO DAILY 06/21/20 mg-500 mg capsule epinephrine 0.3 mg/0.3 mL 0.3 mg IM ONCE #1 ea 03/27/21 injection, auto-injector Current Visit Medications: Current Medications Generic Name Dose Route Start Last Admin Trade Name Freq PRN Reason Stop Dose Admin Acetaminophen 1,000 mg 04/24/21 06:00 Acetaminophen 500 Mg Tab PO Q4H PRN PRN Miscellaneous Medication 0 ml 04/24/21 06:00 Prednisolone 1%, Moxifloxacin 0.5%, Nepafenac 0.1% 5ml Btl OD DIRECTED [facility] Miscellaneous Medication 0 ml 04/24/21 06:00 Tropicam./Phenyleph. 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 Urinary retention R33.9 Hypertensive urgency I16.0 Dermatitis L30.9 Essential hypertension 11/23/13 I10 Gastroesophageal reflux disease 05/22/13 K21.9 Hyperlipidemia E78.5 Knee pain M25.569 Low back pain M54.5 Total urinary incontinence 08/26/08 N39.498 Bursitis of left shoulder M75.52 Status post tonsillectomy and adenoidectomy Z90.89 Sciatica 11/24/13 M54.30 History of bilateral breast reduction surgery Z98.890 Generalized osteoarthritis M15.9 Carpal tunnel syndrome G56.00 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, 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 Weight loss R63.4 Foot spasms R25.2 Lactose intolerance E73.9 Bilateral shoulder pain M25.511, M25.512 Tendinitis of long head of biceps brachii of both shoulders M75.21, M75.22 Left rotator cuff tear M75.102 Bilateral shoulder bursitis M75.51, M75.52 Impingement syndrome of both shoulders M75.41, M75.42 Arthritis of left acromioclavicular joint M19.012 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 Medical History Medical History Actinic keratosis 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 Diarrhea negative colonosocpy for microscopic colitis Diarrhea Essential hypertension GERD (gastroesophageal reflux disease) [place]'s disease Hx of Clostridium difficile infection Kyphosis Muscular dystrophy Neck pain large breasts; S/P reduction x 2 Peripheral neuropathy RLS (restless legs syndrome) Sinus arrhythmia (11/24/13) noted on EKG [place] [facility] [place] 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 Marinelli Reduction mammoplasty (~1995) Replacement of total knee joint [facility] [place] (right) Thymomma Tumor removal 1996 Tonsillectomy and adenoidectomy (~1949) Total replacement of hip [facility] [place] 11/01/17 Tobacco Smoking/Tobacco Use Status: Former Tobacco Use Tobacco: How many years used: 3 Passive smoking exposure: Yes Second hand exposure: Yes Alcohol Alcohol Intake: former Substance Use Substance use: Never Substance use type: does not use Vital Signs and Lab Results Vital Signs Most Recent Vital Signs in EMR: Temp Pulse Resp BP Pulse Ox 36.5 C 75 18 165/81 H 97 04/24/21 07:30 04/24/21 07:30 04/24/21 07:30 04/24/21 07:30 04/24/21 07:30 Lab Results Blood Type / Crossmatch: No Data to Display Complete Blood Count: No Data to Display Complete Metabolic Panel: Sodium Level 142 mmol/L (136-145) 03/27/21 11:41 03/27/21 Potassium Level 4.3 mmol/L (3.5-5.1) 03/27/21 11:41 03/27/21 Chloride Level 106 mmol/L (98-107) 03/27/21 11:41 03/27/21 Carbon Dioxide Level 32.3 mmol/L (21.0-32.0) H 03/27/21 11:41 03/27/21 Blood Urea Nitrogen 16 mg/dL (7-18) 03/27/21 11:41 03/27/21 Creatinine 0.6 mg/dL (0.55-1.02) 03/27/21 11:41 03/27/21 Estimated GFR/1.73 m2 >= 60.00 (mL/min/1.73m2) 03/27/21 11:41 03/27/21 Calcium Level 9.9 mg/dL (8.5-10.1) 03/27/21 11:41 03/27/21 Albumin 3.6 g/dL (3.4-5.0) 03/27/21 11:41 03/27/21 Glucose Level 98 mg/dL (74-106) 03/27/21 11:41 03/27/21 Liver Function Panel: Alanine Aminotransferase (ALT/SGPT) 22 U/L (14-59) 03/27/21 11:41 03/27/21 Aspartate Amino Transf (AST/SGOT) 21 U/L (15-37) 03/27/21 11:41 03/27/21 Coagulation Panel: No Data to Display Cardiac Panel: No Data to Display Arterial Blood Gas: No Data to Display Venous Blood Gas: No Data to Display Pancreas Panel: No Data to Display Thyroid Panel: No Data to Display Infectious Disease: No Data to Display Blood Cultures: No Data to Display Toxicology Panel: No Data to Display Imaging and Studies Imaging and Studies EKG Summary: 2019: sinus rhythm, LAFB. Anesthesia Assessment and Plan Anesthesia History Personal History: No History of Anesthesia Complications Family History: No Family History of Anesthesia Complications Exercise Tolerance Exercise Tolerance: Metabolic Equivalents>4 Cardiac & Pulmonary Exam Cardiac Exam: Normal S1/S2 Heart Sounds Pulmonary Exam: Clear Bilateral Breath Sounds Airway Exam Known Difficult Airway: No Mallampati Class: 3 Mouth Opening: Narrow (< 3cm) Thyromental Distance: Less than 3 cm Neck Range of Motion: Limited ROM Neck Circumference: Normal Teeth Condition: Edentulous ASA Classification ASA Score: ASA 2 Emergency Case?: No NPO Status NPO Status: NPO Clears >2 hours, Solids >8 hours Anesthesia Plan Resuscitation Status: Full Code Anesthesia Technique: MAC Anesthesia Airway Planned: Natural Airway Monitors Used: Standard Monitors Preoperative Comments:: 75 yo female for cataract removal. No MKO PMHx: HTN, GERD. previous glide 3 grade 1, easy mask. case aborted (shoulder) due to hemodynamic instability with beach chair.
[2021-04-24 07:30] VITALS: BP 165/81; PULSE 75; RESP 18; TEMP 36.5; O2SAT 97
[2021-04-24] MEDS: Tropicam./Phenyleph. (1/2.5%) 5 ML BTL OD ×3 (07:45→07:59)
[2021-04-24 08:00] VITALS: BMI 23.4
[2021-04-24] MEDS: Tetracaine 0.5% 4 ML BTL OD (08:44)
[2021-04-24] MEDS: Povidone-Iodine Ophth 30 ML BTL (08:45)
[2021-04-24] MEDS: Lidocaine 2% Jelly 6 ML SYR (08:52)
[2021-04-24] MEDS: Duovisc Viscoelastic System EACH 1 EACH (08:52)
[2021-04-24] MEDS: Lidocaine 1% Pres-Free 5 ML VIAL (08:52)
[2021-04-24] MEDS: Balanced Salt Soln.-PLUS 500 ML BAG (08:57)
[2021-04-24] MEDS: Trypan Blue 0.06% 0.5 ML SYR (09:02)
[2021-04-24 09:28] VITALS: BP 154/76; PULSE 56; RESP 16; TEMP 36.3; O2SAT 99
--- NOTE | 2021-04-24 09:29 | W.PM.DSUDISC ---
Discharge Plan Disposition Patient Disposition: HOME Condition: Good Discharge Details Reason For Visit: Cataract Attending Provider: Yves Camara Primary Care Provider: Harsh Alejandre Home Meds and New Rx's Prescriptions: No Action epinephrine [EpiPen] 0.3 mg/0.3 mL auto-injector 0.3 mg IM ONCE Qty: 1 RF: 3 omega 4-dja-rnu-fish oil [Fish Oil] 60-90-500 mg capsule 1 cap PO DAILY RF: 0 CENTRUM SILVER TABLET 1 EACH tablet 1 ea PO DAILY RF: 0 latanoprost 2.5 ML drops 1 drp OD HS RF: 0 bismuth subsalicylate [Pepto-Bismol] 262 MG/15 ML suspension 1 tsp PO PRN PRNRF: 0 Discharge Instructions Stand Alone Forms: Post-op Topical Cataract, Press Ganey (DSU) Discharge Orders Discharge Orders: Discharge Order (Routine); Ordered 04/24/21 Ordered By: Yves Camara DS: Diagnosis Discharge Diagnosis (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
--- NOTE | 2021-04-24 09:30 | ROE_ITS ---
Date of service: 04/24/21 Time of Service: 09:30 Operative Note Operative Note DATE OF PROCEDURE: 04/24/21 PRE-OP DIAGNOSIS: Nuclear/cortical cataract, right eye Poorly dilating pupil, right eye Pseudoexfoliation, right eye Poor red reflex, right eye secondary to cataract POST-OP DIAGNOSIS: same PROCEDURE: Cataract extraction using phacoemulsification with intraocular lens implant, right eye, with pupillary dilation using Malyugin Ring and capsular staining using Vision Blue SURGEON: Yves Camara Refer to Anesthesia Record ESTIMATED BLOOD LOSS: 0 PATHOLOGY: none sent COMPLICATIONS: None Patient was transported to: same day Patient's condition: stable Implants: Bj and Bj / [employer] Tecnis [id number] Indications: Progressive decreased vision due to cataract, right eye Procedure Description: CATARACT SURGERY OPERATIVE REPORT PREOPERATIVE DIAGNOSIS: 1. Nuclear/cortical cataract, right eye 2. Poorly dilating pupil, right eye 3. Poor red reflex, right eye 4. Pseudoexfoliation, right eye POSTOPERATIVE DIAGNOSIS: Same OPERATION: 1. Cataract extraction using phacoemulsification with posterior chamber intraocular lens implant, right eye. 2. Pupillary dilation and iris stabilization using Malyugin Ring 3. Capsular staining with VIsion Blue IOL: IOL Dehydrogenation Supervisor/Model: Bj & Bj / ANITA Tecnis [id number] IOL Power: + 18.5 diopters IOL Serial Number: [id number] Optic Diameter: 6.0mm Haptic/Overall Diameter: 13.0mm PHACO INFO: Josh OpenPeakurion Vision System with OZil and Active Fluidics Cumulative Dispersed Energy (CDE): 15.37 seconds SURGEON: Yves Camara MD, EVA ANESTHESIA: Monitored Anesthesia Care (MAC), with local sub-tenon's anesthetic infiltration COMPLICATIONS: None SPECIMENS: None INDICATIONS FOR PROCEDURE: The patient is a 75-year-old lady with history of progressive decreased vision in her right eyes secondary to the development of significant nuclear and cortical cataract. She has a history of pseudoexfoliation glaucoma, right eye greater than left with a very poorly dilating pupil. She currently takes latanoprost at bedtime. The option of cataract surgery was offered to the patient and she felt she was symptomatic enough that she wished to proceed. PROCEDURE: The correct surgical eye was identified and marked as the right eye and the pupil was dilated in the preoperative area using mydriatics and cycloplegics. The dilated pupil size was 4.0 mm. She elected to proceed without oral sedation. The patient was brought to the operating room where cardiopulmonary monitoring was instituted and surgical time-out was performed, confirming the correct operative eye and IOL power. Topical anesthesia was administered and ophthalmic povidone-iodine 5% was instilled into the conjunctival fornices. Lidocaine gel was applied to the cornea and the elder-ocular area was prepped with Betadine 10% solution and draped in the usual sterile fashion for intraocular surgery, including an aperture drape. A Tegaderm transparent film dressing was cut in half and used to cover the lashes and lid margins. Care was taken to sequester the lashes and lid margins under the Tegaderm dressing. A lid speculum was placed between the lids of the operative eye and the Chantal-Delroy operating microscope was maneuvered into position. Esther scissors were then used to make a conjunctival buttonhole approximately 6mm posterior to the limbus in the inferonasal quadrant. Blunt dissection was carried out to expose bare sclera, and a blunt-tipped sub-tenon?s anesthesia cannula was introduced and passed posteriorly along the globe where non- preserved plain lidocaine was injected into posterior sub-Tenon?s space. A sideport knife was used to make a paracentesis port inferiortemporally. Intraocular phenylephrine/lidocaine was injected into the anterior chamber. Air was then injected into anterior chamber, followed by Vision Blue, which was painted over the anterior capsule, even under the pupil margin, and then irrigated out with BSS. The anterior chamber was then filled with viscoelastic. Viscoat was used to protect the corneal endothelium. A 2.4mm keratome knife was used to create a half-thickness groove at the limbus and then to construct a three-plane near-clear corneal tunnel extending 2.0mm into clear cornea superiortemporally. A 7.0 mm Malyugin Ring was then inserted into the pupillary space and engaged with the Kuglen hook. A flap was raised on the anterior capsule and capsulorhexis forceps were used to complete a continuous curvilinear capsulorhexis of 5.5 mm. Balanced salt solution was then used to perform cortical cleaving hydrodissection and nuclear hydrodelineation until the lens could be freely rotated within the capsular bag. The lens nucleus was then disassembled and removed within the capsular bag and iris plane using phacoemulsification. Residual cortical material was removed using the 45-degree angled silicone I/A tip with 0.3mm port. The posterior capsule was carefully polished to remove as much residual lens epithelial cells as safely possible. The capsular bag was then inflated and the anterior chamber deepened with viscoelastic. The lens implant described above was inserted into the capsular bag using the ANITA [place] Injector. A Kuglen hook was used to dial the IOL into position. The Malyugin Ring was removed in the reverse order of its insertion. Residual viscoelastic was then removed first from posterior to the IOL, then from the anterior chamber using the I/A handpiece. The lens implant was noted to center nicely within the capsular bag. The incisions were stromally hydrated, and the anterior chamber was reformed using BSS. Then 0.5cc of moxifloxacin 1.0mg/ml were injected into the capsular bag and anterior chamber. The incisions were checked with a Weck spear and found to be secure. Several drops of ophthalmic povidone-iodine 5% were then applied to the eye followed by two drops of Imprimis combination prednisoone/moxifloxacin/nepafenac solution. The drapes were removed and a clear plastic protective eye shield was placed over the eye. The patient was then returned to Same Day Surgery in stable condition.
--- NOTE | 2021-04-24 09:45 | W.ANESPOSTOP ---
Postoperative Evaluation Date, Time and Location Date Performed: 04/24/21 Time Performed: 09:45 Patient Location: Day Surgery Unit Vital Signs Most Recent Imported Vital Signs: Most Recent Vital Signs Temp Pulse Resp BP Pulse Ox 36.3 C L 56 L 16 154/76 H 99 04/24/21 09:28 04/24/21 09:28 04/24/21 09:28 04/24/21 09:28 04/24/21 09:28 Pain Score Most Recent Pain Score: Most Recent Pain Score Pain Level 0 04/24/21 09:28 Assessment Mental Status: Awake (Alert & Oriented to Patient Baseline) Airway and Respiratory Function: Patent airway with normal (patient baseline) respiratory exam Cardiovascular Function: Hemodynamically Stable Hydration Status: Adequately Hydrated Nausea & Vomiting: No Nausea or Vomiting Pain: Pt. Denies Any Pain Peripheral Nerve Block: Patient did not receive a nerve block
== END 2021-04-24 09:48 | disposition home or self-care (01) ==
PROVIDERS: PCP Nurse Practitioner Family; Visit Provider Ophthalmology
PROC: (CPT 66982; principal; 2021-04-24 09:30)
DX: H25.11 Age-related nuclear cataract, right eye (principal); H57.03 Miosis
CPT/HCPCS: 66982; V2632

== ENCOUNTER 2021-05-05 02:44 | Outpatient (CLI) | payer MEDICARE, SELFPAY ==
[2021-05-05 11:33] LABS: Source Nasal/Nares
[2021-05-05 16:26] LABS: COVID-19 PCR Negative (Negative)
== END 2021-05-05 02:45 | disposition home or self-care (01) ==
LOC: LBO 02:44
PROVIDERS: PCP Nurse Practitioner Family; Visit Provider Ophthalmology
DX: Z20.822 Contact with and (suspected) exposure to COVID-19 (principal); Z01.812 Encounter for preprocedural laboratory examination
CPT/HCPCS: 87635

== ENCOUNTER 2021-05-08 08:37 | Day surgery (SDC) | payer MEDICARE, SELFPAY ==
[2021-05-08 08:57] VITALS: BP 170/81; PULSE 65; RESP 16; TEMP 36.9; O2SAT 97
--- NOTE | 2021-05-08 09:06 | W.ANESPRE ---
General Info Date of Service Date Performed: 05/08/21 Height: 4 ft 11 in Weight: 52.1 kg Body Mass Index (BMI): 23.1 Surgical Procedure: Operation Date: 05/08/21 11:40 Proposed Procedures Side Surgeon p Cataract Extraction with IOL Implant Left Yves Camara MD Meds Allergies and Home Medications Allergies Allergy/AdvReac Type Severity Reaction Status Date / Time codeine AdvReac Severe GI UPSET Verified 05/08/21 09:08 metoclopramide HCl AdvReac Severe GI UPSET Verified 05/08/21 09:08 [From Reglan] tramadol AdvReac Severe GI UPSET Verified 05/08/21 09:08 Home Medication Medication Instructions Recorded Centrum Silver Tablet 1 ea PO DAILY 01/08/14 latanoprost 1 drp OD HS drp 10/21/17 bismuth subsalicylate 1 tsp PO PRN PRN 05/01/18 [Pepto-Bismol] omega 3-glm-elo-fish oil 60 mg-90 1 cap PO DAILY 06/21/20 mg-500 mg capsule epinephrine 0.3 mg/0.3 mL 0.3 mg IM ONCE #1 ea 03/27/21 injection, auto-injector prednisolone acetate 1 % eye 2 drp OPHTHALMIC (EYE) BID 04/28/21 drops,suspension Current Visit Medications: Current Medications Generic Name Dose Route Start Last Admin Trade Name Freq PRN Reason Stop Dose Admin Acetaminophen 1,000 mg 05/08/21 06:00 Acetaminophen 500 Mg Tab PO Q4H PRN PRN Miscellaneous Medication 0 ml 05/08/21 06:00 Prednisolone 1%, Moxifloxacin 0.5%, Nepafenac 0.1% 5ml Btl OS DIRECTED [facility] Miscellaneous Medication 0 ml 05/08/21 06:00 Tropicam./Phenyleph. 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 Urinary retention R33.9 Hypertensive urgency I16.0 Dermatitis L30.9 Essential hypertension 11/23/13 I10 Gastroesophageal reflux disease 05/22/13 K21.9 Hyperlipidemia E78.5 Knee pain M25.569 Low back pain M54.5 Total urinary incontinence 08/26/08 N39.498 Bursitis of left shoulder M75.52 Status post tonsillectomy and adenoidectomy Z90.89 Sciatica 11/24/13 M54.30 History of bilateral breast reduction surgery Z98.890 Generalized osteoarthritis M15.9 Carpal tunnel syndrome G56.00 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, 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 Weight loss R63.4 Foot spasms R25.2 Lactose intolerance E73.9 Bilateral shoulder pain M25.511, M25.512 Tendinitis of long head of biceps brachii of both shoulders M75.21, M75.22 Left rotator cuff tear M75.102 Bilateral shoulder bursitis M75.51, M75.52 Impingement syndrome of both shoulders M75.41, M75.42 Arthritis of left acromioclavicular joint M19.012 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 Medical History Medical History Actinic keratosis 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 Diarrhea negative colonosocpy for microscopic colitis Diarrhea Essential hypertension GERD (gastroesophageal reflux disease) Sebastian's disease Hx of Clostridium difficile infection Kyphosis Muscular dystrophy Neck pain large breasts; S/P reduction x 2 Peripheral neuropathy RLS (restless legs syndrome) [place]us arrhythmia (11/24/13) [place] [facility] [place] amputation of finger (08/08/08) traumatic amputation distal left 1st.& 2nd finger Surgical History Surgical History Abdominal hysterectomy (~1977) has one ovary Appendectomy (~1957) Bladder Surgery (~1998) SUSPENSION Breast tumor removal 1985- in each breast Colonoscopy - MAC (01/13/18) EGD - MAC (05/01/18) [place] [facility] [place] (~[place]) Ligation of fallopian tube Open Carpal Tunnel release B/L Pre cancer spots removed from face Dr. Marinelli Reduction mammoplasty (~1995) Replacement of total knee joint [facility] [place]) Thymomma Tumor removal 1996 Tonsillectomy and adenoidectomy (~194) Total replacement of hip [facility] [place]17 Tobacco Smoking/Tobacco Use Status: Former Tobacco Use Tobacco: How many years used: 3 Passive smoking exposure: Yes Second hand exposure: Yes Alcohol Alcohol Intake: former Substance Use Substance use: Never Substance use type: does not use Vital Signs and Lab Results Vital Signs Most Recent Vital Signs in EMR: Most Recent Vital Signs Temp Pulse Resp BP Pulse Ox 36.9 C 65 16 170/81 H 97 05/08/21 08:57 05/08/21 08:57 05/08/21 08:57 05/08/21 08:57 05/08/21 08:57 Lab Results Blood Type / Crossmatch: No Data to Display Complete Blood Count: No Data to Display Complete Metabolic Panel: No Data to Display Liver Function Panel: No Data to Display Coagulation Panel: No Data to Display Cardiac Panel: No Data to Display Arterial Blood Gas: No Data to Display Venous Blood Gas: No Data to Display Pancreas Panel: No Data to Display Thyroid Panel: No Data to Display Infectious Disease: Coronavirus (COVID-19)(PCR) Negative (Negative) 05/05/21 09:55 05/05/21 Coronavirus 2019 Source Nasal/Nares 05/05/21 09:55 05/05/21 Blood Cultures: No Data to Display Toxicology Panel: No Data to Display Imaging and Studies Imaging and Studies EKG Summary: 2019: sinus rhythm, LAFB. Anesthesia Assessment and Plan Anesthesia History Personal History: No History of Anesthesia Complications Family History: No Family History of Anesthesia Complications Exercise Tolerance Exercise Tolerance: Metabolic Equivalents>4 Pertinent Negatives Pertinent Negatives: No Major Cardiovascular Symptoms or Complaints and No Major Pulmonary Symptoms or Complaints Cardiac & Pulmonary Exam Cardiac Exam: Normal S1/S2 Heart Sounds Pulmonary Exam: Clear Bilateral Breath Sounds Airway Exam Known Difficult Airway: No Mallampati Class: 3 Mouth Opening: Narrow (< 3cm) Thyromental Distance: Less than 3 cm Neck Range of Motion: Limited ROM Neck Circumference: Normal Teeth Condition: Edentulous ASA Classification ASA Score: ASA 2 Emergency Case?: No NPO Status NPO Status: NPO Clears >2 hours, Solids >8 hours Anesthesia Plan Resuscitation Status: Full Code Anesthesia Technique: MAC Anesthesia Airway Planned: Natural Airway Monitors Used: Standard Monitors Preoperative Comments:: 75 yo female for cataract removal. No MKO PMHx: HTN, GERD. previous glide 3 grade 1, easy mask. case aborted (shoulder) due to hemodynamic instability with beach chair.
[2021-05-08 09:15] VITALS: BMI 23.1
[2021-05-08] MEDS: Tropicam./Phenyleph. (1/2.5%) 5 ML BTL OS ×3 (09:15→09:27)
[2021-05-08] MEDS: Tetracaine 0.5% 4 ML BTL OS (10:49)
[2021-05-08] MEDS: Balanced Salt Soln.-PLUS 500 ML BAG (10:49)
[2021-05-08] MEDS: Lidocaine 1% Pres-Free 5 ML VIAL (10:50)
[2021-05-08] MEDS: Duovisc Viscoelastic System EACH 1 EACH (10:50)
[2021-05-08] MEDS: Lidocaine 2% Jelly 6 ML SYR (10:51)
[2021-05-08] MEDS: Povidone-Iodine Ophth 30 ML BTL (10:52)
[2021-05-08 11:07] VITALS: BP 168/88; PULSE 63; RESP 18; TEMP 36.4; O2SAT 96
--- NOTE | 2021-05-08 11:08 | W.PM.DSUDISC ---
Discharge Plan Disposition Patient Disposition: HOME Condition: Good Discharge Details Attending Provider: Yves Camara Primary Care Provider: Harsh Alejandre Home Meds and New Rx's Prescriptions: No Action epinephrine [EpiPen] 0.3 mg/0.3 mL auto-injector 0.3 mg IM ONCE Qty: 1 RF: 3 omega 0-syu-kma-fish oil [Fish Oil] 60-90-500 mg capsule 1 cap PO DAILY RF: 0 prednisolone acetate 1 % drops,suspension 2 drp ophthalmic (eye) BID RF: 0 CENTRUM SILVER TABLET 1 EACH tablet 1 ea PO DAILY RF: 0 latanoprost 2.5 ML drops 1 drp OD HS RF: 0 bismuth subsalicylate [Pepto-Bismol] 262 MG/15 ML suspension 1 tsp PO PRN PRNRF: 0 Discharge Instructions Stand Alone Forms: Post-op Topical Cataract, Faye Ganey (DSU) Discharge Orders Discharge Orders: Discharge Order (Routine); Ordered 05/08/21 Ordered By: Yves Camara DS: Diagnosis Discharge Diagnosis (1) Cortical cataract of left eye: Status: Resolved (2) Nuclear sclerotic cataract of left eye: Status: Resolved
--- NOTE | 2021-05-08 11:09 | ROE_ITS ---
Date of service: 05/08/21 Time of Service: 11:09 Operative Note Operative Note DATE OF PROCEDURE: 05/08/21 PRE-OP DIAGNOSIS: Nuclear/cortical cataract, left eye POST-OP DIAGNOSIS: same PROCEDURE: Cataract extraction using phacoemulsification with intraocular lens implant, left eye SURGEON: Yves Camara ANESTHESIA TYPE: Local By Surgeon and MAC Refer to Anesthesia Record PATHOLOGY: none sent COMPLICATIONS: None Patient was transported to: same day Patient's condition: stable Implants: Bj and Bj / [employer] Tecnis [id number] Indications: Progressive decreased vision due to cataract, left eye, with poor red reflex Procedure Description: CATARACT SURGERY OPERATIVE REPORT PREOPERATIVE DIAGNOSIS: 1. Nuclear/cortical cataract, left eye POSTOPERATIVE DIAGNOSIS: Same OPERATION: 1. Cataract extraction using phacoemulsification with posterior chamber intraocular lens implant, left eye. IOL: IOL Pharmacy Order Entry Technician/Model: Bj & Bj / ANITA Tecnis [id number] IOL Power: + 19.0 diopters IOL Serial Number: [id number] Optic Diameter: 6.0 mm Haptic/Overall Diameter: 13.0 mm PHACO INFO: [employer] Vision System with OZil and [employer] Cumulative Dispersed Energy (CDE): 8.04 seconds SURGEON: Yves Camara MD, EVA ANESTHESIA: Monitored [facility] ([facility]), with local sub-tenon's anesthetic infiltration COMPLICATIONS: None SPECIMENS: None INDICATIONS FOR PROCEDURE: The patient is a 75-year-old lady with history of diminished visual acuity and both eyes secondary to the development of bilateral cataract. She has a history of pseudoexfoliation glaucoma of the left eye. She has already undergone cataract surgery in the right eye and is doing well postoperatively. She now presents for cataract surgery in the left eye. PROCEDURE: The correct surgical eye was identified and marked as the left eye and the pupil was dilated in the preoperative area using mydriatics and cycloplegics. The dilated pupil size was 6.5 mm. Initially, she elected not to have oral sedation. The patient was brought to the operating room where cardiopulmonary monitoring was instituted and surgical time-out was performed, confirming the correct operative eye and IOL power. Topical anesthesia was administered and ophthalmic povidone-iodine 5% was instilled into the conjunctival fornices. Lidocaine gel was applied to the cornea and the elder-ocular area was prepped with Betadine 10% solution and draped in the usual sterile fashion for intraocular surgery, including an aperture drape. A Tegaderm transparent film dressing was cut in half and used to cover the lashes and lid margins. Care was taken to sequester the lashes and lid margins under the Tegaderm dressing. A lid speculum was placed between the lids of the operative eye and the Chantal-Delroy operating microscope was maneuvered into position. Esther scissors were then used to make a conjunctival buttonhole approximately 6mm posterior to the limbus in the inferonasal quadrant. Blunt dissection was carried out to expose bare sclera, and a blunt-tipped sub-tenon?s anesthesia cannula was introduced and passed posteriorly along the globe where non- preserved plain lidocaine was injected into posterior sub-Tenon?s space. At this point, the patient became quite anxious, and the option of oral sedation was offered and this was administered. Oral sedation was administered in the form of an Imprimis MKO Melt (midazolam 3mg/ketamine 25mg/ondansetron 2mg).A sideport knife was used to make a paracentesis port superiorly/superiortemporally. Intraocular phenylephrine/lidocaine was injected int the anterior chamber.. The anterior chamber was filled with viscoelastic. A 2.4mm keratome knife was used to create a half-thickness groove at the limbus and then to construct a three-plane near-clear corneal tunnel extending 2.0mm into clear cornea at the 3:00 position. A flap was raised on the anterior capsule and capsulorhexis forceps were used to complete a continuous curvilinear capsulorhexis of 5.5 mm. Balanced salt solution was then used to perform cortical cleaving hydrodissection and nuclear hydrodelineation until the lens could be freely rotated within the capsular bag. The lens nucleus was then disassembled and removed within the capsular bag and iris plane using phacoemulsification. Residual cortical material was removed using the 45-degree angled silicone I/A tip with 0.3mm port. The posterior capsule was carefully polished to remove as much residual lens epithelial cells as safely possible. The capsular bag was then inflated and the anterior chamber deepened with viscoelastic. The lens implant described above was inserted into the capsular bag using the ANITA Doss Injector. A Kuglen hook was used to dial the IOL into position. Residual viscoelastic was then removed first from posterior to the IOL, then from the anterior chamber using the I/A handpiece. The lens implant was noted to center nicely within the capsular bag. The incisions were stromally hydrated, and the anterior chamber was reformed using BSS. Then 0.5cc of moxifloxacin 1.0mg/ml were injected into the capsular bag and anterior chamber. The incisions were checked with a Weck spear and found to be secure. Several drops of ophthalmic povidone-iodine 5% were then applied to the eye followed by two drops of Imprimis combination prednisolone/moxifloxacin/nepafenac solution. The drapes were removed and a clear plastic protective eye shield was placed over the eye. The patient was then returned to Same Day Surgery in stable condition.
--- NOTE | 2021-05-08 11:27 | W.ANESPOSTOP ---
Postoperative Evaluation Date, Time and Location Date Performed: 05/08/21 Time Performed: 11:10 Patient Location: Day Surgery Unit Vital Signs Most Recent Imported Vital Signs: Most Recent Vital Signs Temp Pulse Resp BP Pulse Ox 36.4 C L 63 18 168/88 H 96 05/08/21 11:07 05/08/21 11:07 05/08/21 11:07 05/08/21 11:07 05/08/21 11:07 Pain Score Most Recent Pain Score: Most Recent Pain Score Pain Level 0 05/08/21 11:07 Assessment Mental Status: Awake (Alert & Oriented to Patient Baseline) Airway and Respiratory Function: Patent airway with normal (patient baseline) respiratory exam Cardiovascular Function: Hemodynamically Stable Hydration Status: Adequately Hydrated Nausea & Vomiting: No Nausea or Vomiting Pain: Pt. Denies Any Pain Peripheral Nerve Block: Patient did not receive a nerve block
[2021-05-08 11:38] VITALS: BP 145/76; PULSE 64; RESP 18; TEMP 36.4; O2SAT 98
== END 2021-05-08 12:10 | disposition home or self-care (01) ==
PROVIDERS: PCP Nurse Practitioner Family; Visit Provider Ophthalmology
PROC: (CPT 66984; principal; 2021-05-08 11:30)
DX: H25.042 Posterior subcapsular polar age-related cataract, left eye (principal)
CPT/HCPCS: 66984; V2632

== ENCOUNTER → 2021-05-19 11:01 | Outpatient (BNVA) | payer MEDICARE, SELFPAY | PROVIDERS: PCP Nurse Practitioner Family; Referring Provider Nurse Practitioner Family; Visit Provider Surgery | DX: K59.1 Functional diarrhea (principal) | CPT/HCPCS: 99212; 99215 ==

== ENCOUNTER 2021-07-18 01:09 | Outpatient (CLI) | payer MEDICARE, SELFPAY ==
--- NOTE | 2021-07-18 07:30 | DI.MRI_ITS ---
Exam(s) MR PELVIS WO/W EXAM: MR PELVIS WO/W CLINICAL HISTORY: f/u abnl ct and us,adnexal mass,n94.89 TECHNIQUE: Multiplanar multisequence MRI of Pelvis was performed. CONTRAST MATERIAL: IV Contrast: 10 mL of Dotarem contrast administered. COMPARISON: CT CT CHEST ABDOMEN PELVI from 07/01/[address] CHEST ABDOMEN PELVI from 07/01/2018 US US PELVIS COMPLETE from 07/23/2018 FINDINGS: The examination is limited due to patient motion artifact. There is also artifact from the patient's left hip prosthesis. Vasculature: Unremarkable. Bowel: Limited due to motion but grossly unremarkable. Lymph nodes: No significant pelvic adenopathy. Bones: Degenerative changes at L4-5 and L5-S1 but no significant central spinal canal or neural tariq inal stenosis is identified. Musculature: Unremarkable. Soft tissues: Unremarkable. Reproductive organs: The patient appears to be status post hysterectomy. The ovaries are not visuali zed on this examination. No adnexal mass is seen. Enhancement: There is no evidence of suspicious enhancement. Urinary bladder: Remarkable. IMPRESSION: No evidence of a suspicious adnexal or pelvic mass. DATA REPOSITORY:
[2021-07-18] MEDS: Gadoterate meglumine 20 ML VIAL 10 ML IVP (13:01)
[2021-07-18] MEDS: Normal Saline Flush 10 ML SYR IVP (13:20)
== END 2021-07-18 01:29 ==
PROVIDERS: PCP Nurse Practitioner Family; Visit Provider Nurse Practitioner Family
DX: N94.89 Other specified conditions associated with female genital organs and menstrual cycle (principal); Z90.710 Acquired absence of both cervix and uterus; Z96.642 Presence of left artificial hip joint
CPT/HCPCS: 72197

== ENCOUNTER 2021-09-25 16:47 | Outpatient (CLI) | payer MEDICARE, SELFPAY ==
--- NOTE | 2021-09-25 16:45 | DI.RAD_ITS ---
Exam(s) XR SACRUM COCCYX EXAM: XR SACRUM COCCYX CLINICAL HISTORY: fall, back pain, injury M54.9 DORSALGIA R07.81 PLEURODYNIA. TECHNIQUE: 2D digital imaging was performed. COMPARISON: No exams were available for comparison FINDINGS: Left hip prosthesis noted. There is no obvious sacral nor coccyx fracture. Multilevel degenerative disc disease noted with most advanced disc space narrowing evident at L5-S1 level. IMPRESSION: No obvious sacral fracture evident on these plain film images. If clinically indicated further study with CT or MRI can performed for added sensitivity. DATA REPOSITORY: RADIATION DOSE DELIVERED:
--- NOTE | 2021-09-25 16:45 | DI.RAD_ITS ---
Exam(s) XR RIBS LT W PA LAT CHEST EXAM: XR RIBS LT W PA LAT CHEST CLINICAL HISTORY: left rib injury, fall M54.9 DORSALGIA R07.81 PLEURODYNIA. TECHNIQUE: 2D digital imaging was performed. COMPARISON: CR XR CHEST 2V PA LATERAL from 12/20/2020 FINDINGS: Chest x-ray: Sternotomy wires again noted. Heart size normal. Mediastinum is not widened. Abundant air subjacent the left hemidiaphragm again noted in the somewhat distended stomach, similar to the p revious study. There are no infiltrates nor pleural effusions. No pneumothorax Left ribs: Subtle deformity of lateral aspect of the 2nd or 3rd rib without visualization of a distin ct acute appearing fracture line. No lung contusion. No pneumothorax. IMPRESSION: Possible fracture of the left 2nd or 3rd rib. No pneumothorax. No acute pulmonary findings. DATA REPOSITORY: RADIATION DOSE DELIVERED:
--- NOTE | 2021-09-25 16:45 | DI.RAD_ITS ---
Exam(s) XR LUMBAR SPINE COMPLETE EXAM: XR LUMBAR SPINE COMPLETE CLINICAL HISTORY: fall, lower back pain M54.9 DORSALGIA R07.81 PLEURODYNIA. TECHNIQUE: 2D digital imaging was performed. COMPARISON: CR LUMBAR SPINE COMPLETE from 03/05/2011 FINDINGS: There is a mild compression fracture of the superior endplate of T12, age indeterminate. No fracture seen in the lumbar vertebral bodies. Advanced disc space narrowing L5-S1 noted. Moderate disc spac e narrowing L3-4 and L1-2. Mild degenerative anterolisthesis L4 upon L5. Left hip prosthesis noted. No osseous lesions. Sacroiliac joints appear unremarkable. IMPRESSION: Degenerative disc disease. T12 compression fracture-mild. Age indeterminate. This was not evident on plain films of 2010. DATA REPOSITORY: RADIATION DOSE DELIVERED:
--- NOTE | 2021-09-25 17:56 | DI.VRAD_ITS ---
PROCEDURE INFORMATION: Exam: XR Left Ribs Exam date and time: 09/25/2021 4:49 PM Age: 75 years old Clinical indication: Other: Fall, left rib injury TECHNIQUE: Imaging protocol: XR Left ribs. Views: 2 views. COMPARISON: CR XR CHEST 2V PA LATERAL 20/12/2020 14:11 FINDINGS: Bones/joints: The area of clinical concern was not marked. Multilevel degenerative changes of the spine. Degenerative changes of the acromioclavicular joint. Possible 2nd and 3rd lateral rib fracture. Soft tissues: Unremarkable. IMPRESSION: Possible 2nd and 3rd rib fracture. PROCEDURE INFORMATION: Exam: XR Chest Exam date and time: 09/25/2021 4:49 PM Age: 75 years old Clinical indication: Other: Fall, left rib injury TECHNIQUE: Imaging protocol: XR of the chest. Views: 2 views. COMPARISON: CR XR CHEST 2V PA LATERAL 20/12/2020 14:11 FINDINGS: Lungs: Unremarkable. No consolidation. Pleural spaces: Unremarkable. No pleural effusion. No pneumothorax. Heart/Mediastinum: Unremarkable. No cardiomegaly. Diaphragm: Asymmetric elevation of the left hemidiaphragm. Bones/joints: Sternotomy wires in place. Multilevel degenerative changes of the thoracic spine. Possible left 2nd or 3rd rib fracture. Gastrointestinal tract: Air distended stomach. IMPRESSION: 1. No acute cardiopulmonary findings. 2. Possible 2nd and 3rd left rib fracture. Dictated and Authenticated by: Jojo Alarcon MD. Ordering:GUILLE Hill MD
--- NOTE | 2021-09-25 18:15 | DI.VRAD_ITS ---
PROCEDURE INFORMATION: Exam: XR Sacrum and Coccyx, 2 or More Views Exam date and time: 09/25/2021 4:49 PM Age: 75 years old Clinical indication: Other: Fall, back pain TECHNIQUE: Imaging protocol: XR of the sacrum and coccyx, 2 or more views. COMPARISON: CR XR LUMBAR SPINE COMPLETE 25/09/2021 17:24 FINDINGS: Limitations: Markedly limited image quality. Bones/joints: Total left hip arthroplasty. Degenerative changes of the right hip. Markedly limited image quality. Cannot evaluate the sacrum on the AP view. No evidence for sacral or coccyx fracture on the lateral view. Decreased bone mineralization. Multilevel degenerative changes of the lumbar spine. Soft tissues: Normal. IMPRESSION: 1. No obvious acute bony injury of the sacrum or coccyx on the lateral view. 2. Extremely limited image quality. If clinically indicated CT of the pelvis would be more sensitive for bone fracture. Dictated and Authenticated by: Jojo Alarcon MD. Ordering:GUILLE Hill MD
--- NOTE | 2021-09-25 18:21 | DI.VRAD_ITS ---
PROCEDURE INFORMATION: Exam: XR Lumbosacral Spine Exam date and time: 09/25/2021 4:49 PM Age: 75 years old Clinical indication: Other: Fall, lower back pain TECHNIQUE: Imaging protocol: XR of the lumbosacral spine. Views: 4 or 5 views. COMPARISON: MR PELVIS WO/W 05/20/2021 12:34 FINDINGS: Bones/joints: Decreased bone mineralization. Multilevel degenerative scoliotic changes of the spine. Total left hip arthroplasty. Compression deformity of T12 vertebral body. Multilevel facet arthropathy. Soft tissues: Unremarkable. IMPRESSION: 1. T12 compression deformity age indeterminate. 2. Multilevel degenerative scoliotic changes of the lumbar spine. Dictated and Authenticated by: Jojo Alarcon MD. Ordering:GUILLE Hill MD
== END 2021-09-25 17:07 ==
PROVIDERS: PCP Nurse Practitioner Family; Visit Provider Physician Assistant
DX: M54.50 Low back pain, unspecified (principal); R07.81 Pleurodynia; R93.7 Abnormal findings on diagnostic imaging of other parts of musculoskeletal system
CPT/HCPCS: 71046; 71100; 72110; 72220

== ENCOUNTER 2022-01-16 21:35 | Outpatient (REF) | payer MEDICARE, SELFPAY ==
[2022-01-18 11:52] LABS: COVID-19 RT-PCR UVMMC Result Negative (Negative)
--- NOTE | 2022-02-02 15:49 | ANES_ITS ---
Anesthesia Note Report Anesthesia Note: Mrs. Arambula called to review her previous anesthesia experiences at [facility], to prepare for upcoming surgery at another facility. She had specific questions about a cancellation of her shoulder surgery after induction 12/01/20. After review of this case and other surgeries she has had, there are consistent hypertensive pressures with anesthesia. The shoulder surgery was cancelled after a hypotensive event correlating with induction was treated with vasopressive agents causing an exaggerated hypertensive response that did not readily resolve with a deepening anesthetic. I advised Mrs. Arambula to see her PCP and begin antihypertensive therapy as her blood pressure has consistently been high. Also discussed how the nasal spray she has begun taking for allergy symptoms may increase her blood pressure as well. Mrs. Arambula promised me she would follow up with her PCP regarding her high blood pressures.
== END 2022-01-16 21:36 | disposition home or self-care (01) ==
LOC: LBN 21:35
PROVIDERS: PCP Nurse Practitioner Family; Visit Provider Family Medicine
DX: Z20.822 Contact with and (suspected) exposure to COVID-19 (principal); J06.9 Acute upper respiratory infection, unspecified
CPT/HCPCS: U0003; U0005

== ENCOUNTER 2022-03-01 03:30 | Outpatient (CLI) | payer MEDICARE, SELFPAY ==
[2022-03-01 14:19] LABS: Anion Gap 2.3 mmol/L (3-11); BUN 15 mg/dL (7-18); CO2 33.7 mmol/L (21.0-32.0); CREATININE 0.6 mg/dL (0.55-1.02); Calcium 10.3 mg/dL (8.5-10.1); Chloride 105 mmol/L (98-107); Glucose 101 mg/dL (74-106); Potassium 4.3 mmol/L (3.5-5.1); Sodium 141 mmol/L (136-145)
== END 2022-03-01 03:31 | disposition home or self-care (01) ==
LOC: LBO 03:30
PROVIDERS: PCP Nurse Practitioner Family; Visit Provider Nurse Practitioner Family
DX: I10 Essential (primary) hypertension (principal); I16.0 Hypertensive urgency
CPT/HCPCS: 36415; 80048

== ENCOUNTER 2023-01-24 01:14 | Outpatient (CLI) | payer MEDICARE, SELFPAY ==
--- NOTE | 2023-01-24 08:00 | DI.RAD_ITS ---
Exam(s) XR KNEE RT 3V AP,LAT,MARIA D EXAM: XR KNEE RT 3V AP,LAT,MARIA D CLINICAL HISTORY: increased knee pain,,m25.569. TECHNIQUE: 2D digital imaging was performed of the right knee. Three views obtained. AP, lateral an d PA tunnel views were obtained. COMPARISON: CR RIGHT KNEE 3 VIEWS from 08/23/2012 FINDINGS: There are stable postsurgical changes of a right total knee replacement. The orthopedic hardware julieta ears in good position. No lucencies are seen in or about the orthopedic hardware. The bones are int act and normally mineralized. The soft tissues are unremarkable. IMPRESSION: No acute abnormality. Stable right total knee replacement. DATA REPOSITORY: RADIATION DOSE DELIVERED:
== END 2023-01-24 01:34 ==
LOC: DI 01:15
PROVIDERS: PCP Nurse Practitioner Family; Visit Provider Nurse Practitioner Family
DX: M25.569 Pain in unspecified knee (principal); Z47.1 Aftercare following joint replacement surgery
CPT/HCPCS: 73562

== ENCOUNTER → 2023-01-31 13:16 | Outpatient (BNVA) | payer MEDICARE, SELFPAY | PROVIDERS: PCP Nurse Practitioner Family; Referring Provider Nurse Practitioner Family | DX: M70.51 Other bursitis of knee, right knee (principal); M76.31 Iliotibial band syndrome, right leg; Z96.651 Presence of right artificial knee joint | CPT/HCPCS: 99214 ==

== ENCOUNTER → 2023-05-16 02:12 | Outpatient (CLI) | payer MEDICARE, SELFPAY ==
--- NOTE | 2023-05-16 08:15 | DI.RAD_ITS ---
Exam(s) XR WRIST LT COMPLETE EXAM: XR WRIST LT COMPLETE CLINICAL HISTORY: increased bilat wrist pain and decreased ROM,m25.532,m25.531. TECHNIQUE: 2D digital imaging was performed of the left wrist. Three images were obtained. PA, obl ique and lateral views were obtained. COMPARISON: No exams were available for comparison FINDINGS: BONES: No acute fracture is present. No bony destructive lesion is seen. JOINTS: The carpal bones are normally aligned. There are marked degenerative changes seen at the 1st carpometacarpal joint characterized by joint space narrowing and osteophytes. There is loss of volum e of the trapezium. SOFT TISSUE: Normal. IMPRESSION: Marked degenerative changes of the 1st CMC joint. DATA REPOSITORY: RADIATION DOSE DELIVERED:
--- NOTE | 2023-05-16 08:15 | DI.RAD_ITS ---
Exam(s) XR WRIST RT COMPLETE EXAM: XR WRIST RT COMPLETE CLINICAL HISTORY: increased bilat wrist pain and decreased ROM,m25.531,m25.532. TECHNIQUE: 2D digital imaging was performed of the right wrist. Three views were obtained. PA, lat eral and oblique views were obtained. COMPARISON: CR RIGHT THUMB from 10/22/2017 FINDINGS: BONES: No acute fracture is present. No bony destructive lesion is seen. There is again seen resectio n of the trapezium bone JOINTS: The carpal bones are normally aligned. The joint spaces are otherwise well maintained. SOFT TISSUE: Normal. IMPRESSION: No acute abnormality. DATA REPOSITORY: RADIATION DOSE DELIVERED:
== END ==
PROVIDERS: PCP Nurse Practitioner Family; Visit Provider Nurse Practitioner Family
DX: M25.531 Pain in right wrist (principal); M19.042 Primary osteoarthritis, left hand
CPT/HCPCS: 73110

== ENCOUNTER → 2023-06-17 02:03 | Outpatient (CLI) | payer MEDICARE, SELFPAY ==
--- NOTE | 2023-06-17 08:00 | DI.RAD_ITS ---
Exam(s) XR KNEE LT 3V AP,LAT,MARIA D EXAM: XR KNEE LT 3V AP,LAT,MARIA D CLINICAL HISTORY: LT KNEE PAIN, feels like it is giving out,M25.562. TECHNIQUE: 2D digital imaging was performed. Three views. COMPARISON: CR XR KNEE RT 3V AP,LAT,MARIA D from 01/24/2023 FINDINGS: BONES: No acute fracture is present. No bony destructive lesion is seen. Enthesophyte at quadricep s insertion. JOINTS: Joint spaces are maintained. The knee is normally aligned. No joint effusion is seen. Mild chondrocalcinosis. Mild periarticular spurring. SOFT TISSUE: Normal. IMPRESSION: Mild degenerative changes. DATA REPOSITORY: RADIATION DOSE DELIVERED:
--- NOTE | 2023-06-17 08:00 | DI.RAD_ITS ---
Exam(s) XR FOOT RT COMPLETE EXAM: XR FOOT RT COMPLETE CLINICAL HISTORY: occasional ache since ? fx,PAIN,M79.671. TECHNIQUE: 2D digital imaging was performed. Three views. COMPARISON: CR RIGHT FOOT COMPLETE from 02/03/2009 FINDINGS: BONES: No acute fracture is present. No bony destructive lesion is seen. Bones appear osteoporotic. Plantar calcaneal spur. JOINTS: No dislocation present. Hallux valgus. Mild degenerative changes. SOFT TISSUE: Normal. IMPRESSION: Mild degenerative changes and mild hallux valgus. DATA REPOSITORY: RADIATION DOSE DELIVERED:
== END ==
PROVIDERS: PCP Nurse Practitioner Family; Visit Provider Nurse Practitioner Family
DX: M20.11 Hallux valgus (acquired), right foot (principal); M19.071 Primary osteoarthritis, right ankle and foot; M19.072 Primary osteoarthritis, left ankle and foot
CPT/HCPCS: 73562; 73630

== ENCOUNTER → 2023-09-26 01:36 | Outpatient (CLI) | payer MEDICARE, SELFPAY ==
--- NOTE | 2023-09-26 08:30 | DI.RAD_ITS ---
Exam(s) XR LUMBAR SPINE COMPLETE EXAM: XR LUMBAR SPINE COMPLETE CLINICAL HISTORY: low and mid back pain after fall M54.9 DORSALGIA. TECHNIQUE: 2D digital imaging was performed. Five views. COMPARISON: CR,XR XR LUMBAR SPINE COMPLETE from 09/25/2021 FINDINGS: Exam is limited by large amount of overlying bowel gas as well as clothing. BONES: No fracture or destructive lesion. Vertebral body heights are maintained. Prominent facet hyp ertrophy identified L4-5 and L5-S1.. Left hip prosthesis. DISKS: Unmh-ag-batwrgfv disc space narrowing at L3-4 and L5-S1. The remain intervertebral disc space s are maintained. ALIGNMENT: Lumbar spinal alignment is within normal limits. SOFT TISSUE: Normal. IMPRESSION: Degenerative changes greatest at L3-4 and L5-S1. DATA REPOSITORY: RADIATION DOSE DELIVERED:
--- NOTE | 2023-09-26 08:30 | DI.RAD_ITS ---
Exam(s) XR THORACIC SPINE COMPLETE EXAM: XR THORACIC SPINE COMPLETE CLINICAL HISTORY: low and mid back pain after fall M54.9 DORSALGIA. TECHNIQUE: 2D digital imaging was performed. Three views. COMPARISON: CR,XR XR RIBS LT W PA LAT CHEST from 09/25/2021 FINDINGS: BONES: Stable mild compression fracture of the superior endplate of T12. Small endplate osteophytes noted from the mid through lower thoracic levels.. Sternal wires. ALIGNMENT: Within normal limits. DISKS: Interverebral disc spaces are maintained. SOFT TISSUE: Visualized lungs are clear. Heart size normal. IMPRESSION: Stable mild T11 compression fracture. DATA REPOSITORY: RADIATION DOSE DELIVERED:
== END ==
PROVIDERS: PCP Nurse Practitioner Family; Visit Provider Nurse Practitioner Family
DX: M54.9 Dorsalgia, unspecified (principal); S22.080A Wedge compression fracture of T11-T12 vertebra, initial encounter for closed fracture; W18.39XA Other fall on same level, initial encounter; X58.XXXA Exposure to other specified factors, initial encounter
CPT/HCPCS: 72072; 72110

== ENCOUNTER → 2024-03-13 01:52 | Outpatient (CLI) | payer MEDICARE, SELFPAY ==
--- NOTE | 2024-03-13 | DI.CT_ITS ---
Exam(s) CT CHEST W EXAM: CT CHEST W CLINICAL HISTORY: CHRONIC COUGH,R05.9,ELEVATED DIAPHRAGM,J98.6 TECHNIQUE: Imaging Protocol: Axial computed tomography images with coronal and sagittal reformatted images were created and reviewed CONTRAST MATERIAL: Intravenous: Omnipaque 350Contrast volume:70 mL. COMPARISON: CT HEAD WITHOUT CONTRAST from 04/24/[address] CHEST ABDOMEN PELVI from 07/01/2018 CR XR LUMBAR SPINE COMPLETE from 09/26/2023 CR XR THORACIC SPINE COMPLETE from 09/26/2023 FINDINGS: Go patient motion Tracheobronchial tree: Patent where visualized. No bronchiectasis. Pulmonary parenchyma: There is a 4 mm nodule in the right lower lobe (series 3, image 240). There is infiltrate seen in the dependent portion of the left lower lobe right above the hemidiaphragm. This may represent atelectasis or pneumonia. There is elevation of the left hemidiaphragm. Mediastinum and Tiny: No dominant adenopathy or fluid collection. The esophagus is unremarkable. Thyroid gland: Thyroid nodules are present. The largest measures 9 mm. No follow-up is recommended. Pleura: No effusion or pneumothorax. Heart: The heart is not dilated. No coronary artery calcifications are seen. No pericardial effusion. Aorta: Thoracic aorta non-dilated. No evidence of dissection. Atherosclerotic calcification is prese nt. Pulmonary arteries: Due to the timing of the bolus, the pulmonary arteries are inadequately opacified for evaluation of pulmonary emboli. No large central pulmonary embolus is seen. Upper abdomen: Unremarkable. Lymph nodes: Within normal limits. Bones: Within normal limits for the patient's age. Sternal wires are in place. Soft tissues: Unremarkable. IMPRESSION: 1. There is elevation of the left hemidiaphragm with a subjacent infiltrate in the left lower lobe. This may represent atelectasis or pneumonia. 2. 4 mm right lower lobe pulmonary nodule. Solid nodules smaller than 6 mm do not require routine follow-up in all patients with high clinical r isk; however, some nodules smaller than 6 mm with suspicious morphology, upper lobe location, or both may warrant follow-up at 12 months (grade 2A; weak recommendation, high-quality evidence). (Femi et al., 2017) Single solid noncalcified nodules. ???Solid nodules smaller than 6 mm (those 5 mm or smaller) do not require routine follow-up in patients at low risk (grade 1C; strong recommendation, low- or very-low- quality evidence). (Femi et al., 2017) RADIATION DOSE DELIVERED: 332.01mGy.cm Total DLP DATA REPOSITORY: All CT scans at this facility are submitted to the National Radiology Data Registry (NRDR) Dose Index Registry (DIR) with the [employer] ([employer]). RADIATION OPTIMIZATION: All CT scans at this facility use at least one of these dose optimization te chniques: automated exposure control; mA and/or kV adjustment per patient size (includes targeted exa ms where dose is matched to clinical indication); or iterative reconstruction.
--- OUTSIDE RECORDS SUMMARY | 2024-03-13 01:55 | XMS_ITS | Continuity of Care Document ---
Author Name Unknown Organization [facility] Address [address] [place] [phone] Care Team Providers Care Product Manager Financial Services Name Role Phone Physician, Non-Staff [facility] Primary Care Physici an Unavailable Encounter [facility] Date(s): 02/04/24 - 02/04/24 [facility] [address] [place] [phone] Discharge Disposition: Home Attending Physician: Tyra Diop MD Admitting Physician: Tyra Diop MD Allergies, Adverse Reactions, Alerts Substance Criticality Severity Reaction Reaction Severity Status Ritalin 1 Low criticality Mild Acti ve Metoclopramide Hydrochloride 2 Unable to assess criticality Unknown Active Codeine Phosphate 3 Unable to assess criticality Unknown Active Timolol Maleate Unable to assess criticality Unknown Active traMADol Unable to assess criticality Unknown Active 1Itching 2Nausea and Vomiting 3Nasuea and Vomiting Medications acetaminophen 0 Refill(s) Start Date: 02/04/24 Status: Ordered amoxicillin 0 Refill(s) Start Date: 02/04/24 Status: Ordered cholecalciferol 2000 intl units oral capsule 50 mcg = 1 cap(s), Oral, Daily, # 60 cap(s), 0 Refill(s) Start Date: 02/04/24 Status: Ordered cyanocobalamin 500 mcg oral tablet, chewable 0 Refill(s) Start Date: 02/04/24 Status: Ordered dorzolamide-timolol 2%-0.5% ophthalmic solution 0 Refill(s) Start Date: 02/04/24 Status: Ordered glucosamine 500 mg oral capsule 0 Refill(s) Start Date: 02/04/24 Status: Ordered ketoconazole 2% topical cream 0 Refill(s) Start Date: 02/04/24 Status: Ordered ketoconazole 2% topical shampoo 0 Refill(s) Start Date: 02/04/24 Status: Ordered magnesium oxide 250 mg oral tablet 0 Refill(s) Start Date: 02/04/24 Status: Ordered omeprazole 20 mg oral delayed release capsule 0 Refill(s) Start Date: 02/04/24 Status: Ordered Pred Forte 1% ophthalmic suspension 0 Refill(s) Start Date: 02/04/24 Status: Ordered pyridostigmine 60 mg oral tablet 0 Refill(s) Start Date: 02/04/24 Status: Ordered Problem List Condition Confirmation Course Effective Dates Status Health Status Informant Kyphosis of thoracolumbar region Confirmed Active Actinic keratosis Confirmed Active Bilateral back pain Confirmed Active Bradycardia Confirmed Active Bursitis of left hip Confirmed Active Camptocormia Confirmed Active Essential hypertension Confirmed Active Head ache Confirmed Active Incisional hernia Confirmed Active Irregular heart rhythm Confirmed Active Lentigines Confirmed Active MG (myasthenia gravis) Confirmed Active Glaucoma, pseudoexfoliation Confirmed Active Urinary retention Confirmed Active Seborrheic dermatitis of scalp Confirmed Active Sensorineural hearing loss Confirmed Active Vital Signs Most recent to oldest [Reference Range]: 1 Peripheral Pulse Rate [60-100 bpm] 76 bp m (02/04/24 3:01 PM) Blood Pressure [90-140/60-90 mmHg] 136/7 6mmHg (02/04/24 3:01 PM) SpO2 [92-100 %] 99 % (02/04/24 3:01 PM) SpO2 Location Right hand (02/04/24 3:01 PM) Height 149.8 cm (02/04/24 3:01 PM) Height/Length Measured (inches) 59 in (02/04/24 3:01 PM) Weight 56.8 kg (02/04/24 3:01 PM) Weight Measured (lbs) 125.222 lb (02/04/24 3:01 PM) Weight Dosing 56.800 kg (02/04/24 3:01 PM) BSA Measured 1.54 m2 (02/04/24 3:01 PM) Body Mass Index Measured 25.31 kg/m2 (02/04/24 3:01 PM) Patient Care team information Care Team Personnel Name: Physician, Non-Staff [facility] Position: [facility] No Access Member Role: Primary Care Physician Care Team Related Persons Name: DOV ANDRADE Name: ZHENG COOK
--- OUTSIDE RECORDS SUMMARY | 2024-03-13 01:55 | XMS_ITS | Continuity of Care Document ---
Author Name Unknown Organization [facility] Address [address] [place] [phone] Care Team Providers Care Bulldozer Press Operator Name Role Phone Physician, Non-Staff [facility] Primary Care Physici an Unavailable Encounter [facility] [id number] Date(s): 01/31/24 - 01/31/24 [facility] [address] [place] [phone] Discharge Disposition: Other Attending Physician: Harsh Reno MD Admitting Physician: Harsh Reno MD Assessment and Plan Future Appointments Patient Care team information Care Team Personnel Name: Physician, Non-Staff [facility] Position: [facility] No Access Member Role: Informed Provider
[2024-03-13 14:03] LABS: CREATININE 0.6 mg/dL (0.55-1.02); Estimated GFR 91.82 (mL/min/1.73m2)
[2024-03-13] MEDS: Omnipaque 350 MG/ML 100 ML BTL IJ (14:25)
[2024-03-13] MEDS: Normal Saline - Diluent 50 ML VIAL IJ (14:26)
== END ==
PROVIDERS: PCP Nurse Practitioner Family; Visit Provider Nurse Practitioner Gerontology
DX: J98.6 Disorders of diaphragm (principal); R05.9 Cough, unspecified; R91.8 Other nonspecific abnormal finding of lung field
CPT/HCPCS: 71260; 82565; J3490

== ENCOUNTER 2024-06-01 02:04 | Outpatient (CLI) | payer MEDICARE, SELFPAY ==
--- NOTE | 2024-06-01 08:00 | DI.RAD_ITS ---
Exam(s) XR FEMUR LT EXAM: XR FEMUR LT CLINICAL HISTORY: left mid thigh pain, M79.652. TECHNIQUE: 2D digital imaging was performed. COMPARISON: CT ABD PELVIS WITH CONTRAST from 12/23/2017 FINDINGS: Five views. There is a left prosthesis which appears satisfactory with respect to position alignment and there is no evidence of fracture or loosening of the components of the prosthesis. The remainder of the left femur appears unremarkable. No osseous lesions. Bone density normal. The re degenerative changes in the left knee joint noted. IMPRESSION: Satisfactory appearance of left hip prosthesis. No fracture or loosening. DATA REPOSITORY: RADIATION DOSE DELIVERED:
== END 2024-06-01 02:24 ==
LOC: DI 02:04
PROVIDERS: PCP Nurse Practitioner Family; Visit Provider Nurse Practitioner Family
DX: M79.652 Pain in left thigh (principal); Z98.890 Other specified postprocedural states; Z96.642 Presence of left artificial hip joint
CPT/HCPCS: 73552

== ENCOUNTER 2024-09-07 01:27 | Outpatient (CLI) | payer MEDICARE, SELFPAY ==
--- NOTE | 2024-09-07 13:10 | DI.RAD_ITS ---
Exam(s) XR KNEE RT 3V AP,LAT,MARIA D EXAM: XR KNEE RT 3V AP,LAT,MARIA D CLINICAL HISTORY: pain after fall,M25.561. TECHNIQUE: 2D digital imaging was performed. COMPARISON: CR XR KNEE RT 3V AP,LAT,MARIA D from 01/24/2023 CR XR KNEE LT 3V AP,LAT,MARIA D from 06/17/2023 FINDINGS: 3 views No evidence of acute fracture. Components of the prosthesis appears stable with no fracture or loose jack evident. Is also no patellar fracture. IMPRESSION: Stable satisfactory appearance. No acute fractures. No loosening of the prosthesis evident. DATA REPOSITORY: RADIATION DOSE DELIVERED:
== END 2024-09-07 01:47 ==
LOC: DI 01:30
PROVIDERS: PCP Nurse Practitioner Family; Visit Provider Nurse Practitioner Family
DX: M25.561 Pain in right knee (principal)
CPT/HCPCS: 73562

== ENCOUNTER 2025-01-06 15:11 | Outpatient (CLI) | payer MEDICARE, SELFPAY ==
--- NOTE | 2025-01-06 14:30 | DI.RAD_ITS ---
Exam(s) XR SHOULDER LT COMPLETE 2+V EXAM: XR SHOULDER LT COMPLETE 2+V CLINICAL HISTORY: LEFT SHOULDER PAIN. TECHNIQUE: 2D digital imaging was performed. Two views. COMPARISON: CR XR SHOULDER RT COMPLETE 2+V from 03/06/2021 FINDINGS: BONES: No acute fracture is present. No bony destructive lesion is seen. Spurring at the greater and lesser tuberosities. JOINTS: No dislocation present. Mild narrowing of the glenohumeral joint and mild spurring at the gl enoid. AC joint is not well profiled. SOFT TISSUE: Normal. IMPRESSION: Mild degenerative changes. DATA REPOSITORY: RADIATION DOSE DELIVERED:
== END 2025-01-06 15:12 | disposition home or self-care (01) ==
LOC: DIORS 15:11
PROVIDERS: PCP Nurse Practitioner Family; Referring Provider Nurse Practitioner Family; Visit Provider Student in an Organized Health Care Education/Training Program
DX: M19.012 Primary osteoarthritis, left shoulder (principal)
CPT/HCPCS: 99213; 73030

== ENCOUNTER 2025-01-22 11:15 | Outpatient (CLI) | payer MEDICARE, SELFPAY ==
--- NOTE | 2025-01-22 11:00 | DI.RAD_ITS ---
Exam(s) XR SHOULDER LT COMPLETE 2+V EXAM: XR SHOULDER LT COMPLETE 2+V CLINICAL HISTORY: left shoulder injury. TECHNIQUE: 2D digital imaging was performed. COMPARISON: CR XR SHOULDER LT COMPLETE 2+V from 01/06/2025 FINDINGS: Two views No evidence of fracture. There is mild upward subluxation of the humeral head within the glenoid fos sa diminution of the subacromial space. There are mild degenerative changes in the glenohumeral and AC joints. There are no abnormal soft tissue calcifications. Sternotomy wires again noted. IMPRESSION: Upward subluxation of the humeral head. This may be related to rotator cuff pathology. DATA REPOSITORY: RADIATION DOSE DELIVERED:
== END 2025-01-22 11:16 | disposition home or self-care (01) ==
LOC: DIORS 11:16
PROVIDERS: PCP Nurse Practitioner Family; Referring Provider Nurse Practitioner Family; Visit Provider Physician Assistant
DX: M19.012 Primary osteoarthritis, left shoulder (principal)
CPT/HCPCS: 20611; J1010; 73030

== ENCOUNTER 2025-05-25 10:35 | Outpatient (CLI) | payer MEDICARE, SELFPAY ==
--- NOTE | 2025-05-25 10:30 | RT.EKG_ITS ---
APPROVED REPORT Exam: Resting ECG Reason for Exam: elective surgery Patient Location: O HR:59 bpm ECG Measurements Heart Rate 59 AXIS MI 198 P 64 QRSd 99 QRS -65 QT 410 T 69 QTc 407 Conclusion Sinus rhythm...normal P axis, V-rate 50- 99 Left anterior fascicular block...axis(240,-40), init forces inf Abnormal R-wave progression, late transition...QRS area<0 in V5/V6 Probable left ventricular hypertrophy...(RaVL+SV3)xQRSd >300
== END 2025-05-25 10:36 | disposition home or self-care (01) ==
LOC: DI.CM 10:37
PROVIDERS: PCP Nurse Practitioner Family; Visit Provider Nurse Practitioner Family
DX: R06.02 Shortness of breath (principal); I44.4 Left anterior fascicular block; I51.7 Cardiomegaly
CPT/HCPCS: 93010

== ENCOUNTER 2025-05-25 10:36 | Outpatient (CLI) | payer MEDICARE, SELFPAY ==
[2025-05-25 13:54] LABS: HCT 38.3 % (36.0-46.0); HGB 12.3 g/dL (11.2-15.7); MCH 29.0 pg (27.0-33.0); MCHC 32.1 % (32.0-36.0); MCV 90 fL (80-95); MPV 9.6 fL (8.0-11.0); Platelet Count 180 10^3/uL (130-400); RBC 4.24 10^6/uL (3.93-5.22); RDW 13.6 % (11.7-14.6); RDW-SD 45.5 fL; WBC 4.89 10^3/uL (4.4-10.8)
[2025-05-25 14:26] LABS: Anion Gap 4.3 mmol/L (3-11); BUN 13 mg/dL (7-18); CO2 31.7 mmol/L (21.0-32.0); Calcium 11.0 mg/dL (8.5-10.1); Chloride 107 mmol/L (98-107); Estimated GFR 91.25 (mL/min/1.73m2); Glucose 94 mg/dL (74-106); Potassium 4.0 mmol/L (3.5-5.1); Sodium 143 mmol/L (136-145)
== END 2025-05-25 10:37 | disposition home or self-care (01) ==
LOC: LOS 10:36
PROVIDERS: PCP Nurse Practitioner Family; Referring Provider Nurse Practitioner Family; Visit Provider Nurse Practitioner Family
DX: K59.1 Functional diarrhea (principal); I10 Essential (primary) hypertension
CPT/HCPCS: 36415; 80048; 85027

== ENCOUNTER → 2025-08-11 01:16 | Outpatient (CLI) | payer MEDICARE, SELFPAY ==
--- NOTE | 2025-08-11 09:00 | DI.DEXA_ITS ---
Exam(s) XR DEXA BONE DENSITY W/WO PHIL EXAM: XR DEXA BONE DENSITY W/WO PHIL CLINICAL HISTORY: osteopenia,postmenopausal status asymptomatic,z78.0 TECHNIQUE: Routine DEXA evaluation of the lumbar spine, hip, or forearm. COMPARISON: Prior DEXA scan performed August 2012, 13 years ago. FINDINGS: Performed on a [email or web address] unit. Lateral image: No compression fracture evident. Lumbar Spine total T-score: -2.9 which is in the osteoporosis range. The prior reading 3 years ago was -1.0 which was low normal range. Hip total T-score:-3.3 which is osteoporosis range. Independent reading at the level of the femoral neck yields T-score of -3.3 which is also osteoporosis range. Forearm total T-score: -4.4 which is osteoporosis range. This is also significant deterioration from the 2012 study. Reading at that time was -1.3 IMPRESSION: Bone mineral density now measures in the osteoporosis range. Fracture risk is high. There has been significant loss of bone mineral density when compared to the prior DEXA scan of August 2012. Note: Any spine fracture indicates 5x risk for subsequent spine fracture and 2x risk for subsequent hip fracture. World Health Organization criteria for BMD interpretation classify patients: Normal...... T- Score at or above -1.0 Osteopenic... T- Score between -1.0 and -2.5 Osteoporosis... T-Score at or below -2.5
== END ==
LOC: DI 01:16
PROVIDERS: PCP Nurse Practitioner Family; Visit Provider Nurse Practitioner Family
DX: Z78.0 Asymptomatic menopausal state (principal)
CPT/HCPCS: 77080

== ENCOUNTER 2025-08-23 13:31 | Outpatient (CLI) | payer MEDICARE, SELFPAY ==
[2025-08-23 16:39] LABS: Vitamin D 25 Total 36 ng/mL (30-100)
== END 2025-08-23 13:32 | disposition home or self-care (01) ==
PROVIDERS: PCP Nurse Practitioner Family; Visit Provider Nurse Practitioner Family
DX: M81.0 Age-related osteoporosis without current pathological fracture (principal)
CPT/HCPCS: 36415; 82306